=== PATIENT | female | born 1945 | race Caucasian/White ===

== ENCOUNTER 2025-07-01 18:49 | Inpatient (IN) | payer MEDICARE, SELFPAY ==
[2025-07-01] VITALS (7 sets, daily range): BP systolic 82–144; BP diastolic 53–81; BMI 26.6
--- NOTE | 2025-07-01 13:38 | ED.GENMED ---
History of Present Illness
General
Chief Complaint: Breathing Problem
Source: patient, family and ambulance crew
Exam Limitations: none
Time Seen by Provider: 07/01/25 13:23
Nursing documentation reviewed up to this point in time: agreed with
History of Present Illness
History of Present Illness:
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 Upon arrival, patient's oxygen level is
normal, and patient has no complaints. Patient denies any shortness of breath when her oxygen level was deemed to be low. Per family, denies recent illness. Denies previous history of similar symptoms. Patient does not typically use oxygen.
Patient denies chest pain. Denies fever or chills. Denies vomiting or diarrhea. Denies recent change in medications or diet.
Review of Systems
Review of Systems
Allergies reviewed?: Yes
All Other Systems: ROS reviewed and negative except as documented in HPI and ROS
Constitutional: Reports no symptoms; Denies fever
Respiratory: Reports cough; Denies trouble breathing
Cardiac: Reports no symptoms
ABD/GI: Reports no symptoms; Denies vomiting or diarrhea
Musculoskeletal: Reports no symptoms
Skin: Reports no symptoms
Neurological: Reports no symptoms
Phy Exam
Physical Exam
Physical Exam:
Physical Exam
General: no apparent distress, not acutely ill. afebrile
Head: nc/at. eomi
Neck: supple. no meningeal signs
Heart: s1/s2 regular rate and rhythm
Lungs: no acute respiratory distress. clear bilaterally
Abdomen: normal bowel sounds. not tender.
Neuro: alert and oriented x 3. LUE/LLE weakness, chronic
Skin: no rash
Psychiatric: well kept. interactive and cooperative
Extremities: no edema. no calf tenderness.
Scores
Heart Failure Risk
Heart Failure Risk Score: Not Applicable
Course
Orders/Labs/Results
Orders:
Orders
07/01/25 13:35
CR Chest Single View Urgent
Reason For Exam: sob/hypoxia
07/01/25 Dinner
Cholesterol Lowering
At Your Request: Limited Participation
Cholesterol Lowering: Sodium, 2 Gram
07/01/25 15:12
Basic Metabolic Panel Urgent
COVID-19 Antigen Urgent
Source: Nasal Swab
Complete Blood Count/No Diff Urgent
D-Dimer Urgent
Troponin I Urgent
07/01/25 15:49
CT Chest PE Study Urgent
Comment:
Reason For Exam: sob/hypoxia
07/01/25 18:09
Heparin 6,100 units IV NOW STA
07/01/25 18:[address] Non Medication Order As Directed
Physician Order: PTT 6 hours after initial start of Heparin infusion
Above order entered?: Yes
07/01/25 18:15
Heparin 22035 Units/250 ml 25,000 units in 250 ml IV PER PROTOCOL
Weight to be used for heparin protocol in kilograms (kg):: 76.3
Protocol:: DVT/PE
PTT Goal Range to be used:: PTT 73 to 111 seconds
Order type:: Initial
INITIAL Infusion Dose (UNITS/KG/hr) & then follow protocol:: 18 units/kg/hr
Infusion Dose in UNITS/hr & then follow protocol (UNITS/hr):: 1,400
INFUSION RATE in mL/hr & then follow protocol (mL/hr):: 14
For DVT/PE algorithm, re-bolus for low PTT?: Yes
PTT less than or equal to 64 seconds:: Re-bolus 80 units/kg (max 10,000units). Increase by 300 units/hr
(+ 3mL/hr)
PTT 64.1 to 72.9 seconds:: Re-bolus 40 units/kg (max 5,000 units). Increase by 200 units/hr
(+ 2mL/hr)
PTT 73 to 111 seconds:: Target Range. No change in rate.
PTT 111.1 to 130.9 seconds:: Decrease rate by 200 units/hr (- 2 mL/hr)
PTT 131 to 199.9 seconds:: HOLD for 1 hr. Then decrease by 200 units/hr (- 2mL/hr)
PTT greater than or equal to 200 seconds:: HOLD for 2 hrs & Notify Provider. Then decrease by 300 units/hr
(- 3mL/hr)
Lab follow-up:: Each change, PTT q6h until 2 consecutive are therapeutic. Then
PTT daily.
07/01/25 18:16
Heparin 6,100 units IV PRN PRN
07/01/25 18:17
Heparin 3,100 units IV PRN PRN
07/01/25 18:29
Admit/Transfer Patient As Directed
Co-Sign Provider:
Level of Care: Inpatient admission
Assign to:: IMU- Intermediate Care
Physician / Group: ever
Diagnosis: acute PE, hypotension
Reason for Hospitalization: acute PE, hypotension
Expected length of stay greater than two midnights?: Yes
ELOS- Estimated Length of Stay in days: 3
I certify the patient meets the requirements for IP care: Yes
07/01/25 18:31
Code Status As Directed
Resuscitation Status: Full Code
07/01/25 18:36
PTT Urgent
Comment: Obtain baseline before beginning heparin infusion if not already collected
07/01/25 20:11
Acetaminophen [Tylenol] 650 mg PO Q4HPRN PRN
07/01/25 20:11
PULMONARY CONSULT Routine
Consulting Provider: Anne Marie Cr
Was physician already notified: Yes
Reason for consult: PERT alert
Activity As Directed
Activity Level: With Assistance
Bladder Scan As Directed
Follow Bladder Retention/Intermittent Cath Algorithm?: Yes
Frequency: Per Retention Algorithm
Comment: as per intermittent urinary catheter algorithm
Bladder Scan As Directed
Follow Bladder Retention/Intermittent Cath Algorithm?: Yes
PRN if no void in __ hours: 6
Frequency: Per Retention Algorithm
If Bladder Scan Result >: 400
then:: Straight cath
Intake/ Output As Directed
Frequency: Per unit guidelines
Straight Cath As Directed
Frequency: Per Retention Algorithm
Additional Instructions: as per intermittent urinary catheter algorithm
Straight Cath As Directed
Frequency: Per Retention Algorithm
Additional Instructions: straight cath as needed per acute urinary retention algorithm for 24 hrs
Additional Instructions: for bladder scan greater than 400 mL
Vital Signs As Directed
Frequency: Per unit guidelines
07/01/25 22:00
Gabapentin [Neurontin] 100 mg PO HS
07/02/25 05:24
Complete Blood Count/No Diff IN AM
Comprehensive Metabolic Panel IN AM
Troponin I IN AM
07/02/25 08:00
Losartan [Cozaar] 25 mg PO DAILY
07/02/25 18:00
Rosuvastatin Calcium [Crestor] 40 mg PO QPM
Abnormal Lab Results
07/01/25 07/01/25
15:12 18:36
RBC 4.16 L 10^6/uL
(4.20-5.40)
Hgb 11.3 L g/dL
(12.0-16.0)
Hct 35.6 L %
(37.0-47.0)
MCHC 31.7 L g/dL
(33.0-37.0)
APTT 35.1 H Sec
(23.4-35.0)
D-Dimer 1.49 H ug/mlFEU
(0.00-0.50)
Carbon Dioxide 33 H mmol/L
(22-30)
Glucose 106 H mg/dl
(70-99)
Troponin I 0.106 H* ng/ml
07/01/25 15:12
07/01/25 15:12
Vital Signs
Initial and Last Documented VS:
Initial Vital Signs
Temp Pulse Resp BP Pulse Ox
98.0 F 83 16 92/54 96
07/01/25 12:58 07/01/25 12:58 07/01/25 12:58 07/01/25 12:58 07/01/25 12:58
Last Documented Vital Signs
Temp Pulse Resp BP Pulse Ox
98.1 F 72 16 99/56 100
07/02/25 03:00 07/02/25 04:00 07/02/25 04:00 07/02/25 04:00 07/02/25 04:00
MDM/Problems Addressed
MDM/Problems Addressed:
Discussed with nursing supervisor power reactor at rehab facility. Along with noted hypoxia at correction, patient noted to be in respiratory distress with dusky appearance/cyanosis.
Initial troponin noted without chest pain. Will obtain CT PE study to evaluate for potential pulm embolism, as potential source of patient's presenting symptoms.
CT PE study reviewed and discussed with on-call neurosurgery, . As hemorrhagic CVA occurred in December, patient can be fully anticoagulated. As such, patient will be started on heparin protocol.
PERT alert activated.
Critical care statement: A total of 40 minutes of critical care time was provided for this patient. This includes management of unstable vital signs, evaluation of the patient at bedside, reviewing the patient's pertinent medical records, discussion
with consultants, review of old EKGs and review of pertinent medical records. This time with separate from time utilized to perform the aforementioned documented procedures
*Pulse Oximetry
SaO2: 96
Oxygen Mode of Delivery: Room air
Patient hypoxic: no
*Critical Care Note
Total Time (30-74mins, 75-104mins- exclusive of procedures): 40 min
ED Attending Note
-
Portions of this chart may have been created with voice recognition software.� Occasional wrong word or��sound alike� substitutions may have occurred due to the inherent limitations of voice recognition software.
Discharge Plan
Departure
Patient Disposition: Admit
Date of Disposition: 07/01/25
Time of Disposition: 18:14
Admit to: IMU
Presentation/result/management discussed w/ accepting MD/DO: Hospitalist
Discharge Problem:
Pulmonary embolism
Interventions
Interventions:
*Risk Screen - Suicide Last Done: 07/01/25 14:00
*General Assessment Last Done: 07/01/25 14:00
*Neglect/Abuse Screening Last Done: 07/01/25 14:00
*ED- Fall Risk Assessment Last Done: 07/01/25 14:00
*Nursing Disposition Last Done: 07/01/25 19:52
ED- Cardiac Assessment Last Done: 07/01/25 14:00
ED- Pulmonary Assessment Last Done: 07/01/25 14:00
Discharge Date and Time
Discharge Date/Time: 07/01/25 19:52
[2025-07-01 15:33] LABS: Hematocrit 35.6 % (37.0-47.0); Hemoglobin 11.3 g/dL (12.0-16.0); Mean Corp Hgb Conc. 31.7 g/dL (33.0-37.0); Mean Corpuscular Volume 85.6 fL (81.0-99.0); Platelet Count 201 10^3/uL (130-400); Red Cell Dist. Width 12.5 % (11.5-14.5)
[2025-07-01 15:39] LABS: D-Dimer 1.49 ug/mlFEU (0.00-0.50)
[2025-07-01 15:40] LABS: COVID-19 Antigen Negative (Negative)
[2025-07-01 15:55] LABS: Blood Urea Nitrogen 17 mg/dl (7-17); Calcium 9.4 mg/dl (8.4-10.2); Carbon Dioxide 33 mmol/L (22-30); Chloride 105 mmol/L (98-107); Estimated Creatinine Clearance 53 ml/min; Glucose 106 mg/dl (70-99); Potassium 4.8 mmol/L (3.5-5.1); Sodium 138 mmol/L (135-145); eGFR > 60.00
[2025-07-01 16:03] LABS: Troponin I 0.106 ng/ml
--- NOTE | 2025-07-01 17:12 | HPS.HSE ---
Addendum entered and electronically signed by Yong Arnold MD 07/01/25 18:43:
Hypotensive on arrival
Essential HTN
- on FENCE ERECTOR Losartan - hoild if SBP < 110
Confused
Suspect Vascular dementia
s/p Hemorrhagic CVA with residual left-sided deficit and memory impairment
case discussed with Daughter on the phone in length
Original Note:
Family Physician
-
Family Physician: NOT KNOW UNKNOWN - PT DOES
Chief Complaint
-
Dasat to 70 5 on RA to NH
History of Present Illness
HPI�
79F NH Res HX recent hemorrhagic CVA with residual Lt deficit and memory impairment seen at ER:
- persistently low oxygen level, noted by staff this morning - POx 70s on RA but no aparent distress .
- does not typically use O2
- Upon arrival, patient's oxygen level is normal, and patient has no complaints.
- denies any SoB when her oxygen level was deemed to be low.
- Per family, denies recent illness.
- denies previous history of similar symptoms.
- denies chest pain.
- denies fever or chills.
- denies vomiting or diarrhea.
- denies recent change in medications or diet.
Medical History
Past Medical History
Past Medical History: Reports CVA ( Dec 2024 - hemorrhagic CVA), HTN, Hypercholesterolemia, Psychiatric (Anxiety and depression - stable ) and Other (neuropathy )
Past Surgical History: Reports Other (not available )
Social History
Unable to obtain full social history at this time due to: Dementia (vascular MCI )
Family History
Family History: Not pertinent
Allergies / Home Medications
Allergies reflects when Allergies were last updated in [facility].
Home Medications with original date entered in [facility]
Allergy/Medication List:
Allergies
Allergy/AdvReac Type Severity Reaction Status Date / Time
bupropion Allergy Unknown Unknown Verified 07/01/25 13:09
If medication reconciliation has not been performed, why?: Medication List N/A
Review of Systems
-
Constitutional: Reports No Symptoms
EENT: Reports No Symptoms
Respiratory: Reports No Symptoms
Cardiac: Reports No Symptoms
Abdomen/GI: Reports No Symptoms
: Reports No Symptoms
Musculoskeletal: Reports No Symptoms
Skin: Reports No Symptoms
Neurological: Reports No Symptoms
Endocrine: Reports No Symptoms
Hematologic/Lymphatic: Reports No Symptoms
Psych: Reports No Symptoms
Physical Exam
Vital Signs
Vital Signs
Temp Pulse Resp BP Pulse Ox
98.0 F 79 13 82/53 96
07/01/25 12:58 07/01/25 13:45 07/01/25 13:45 07/01/25 13:09 07/01/25 13:41
Physical Exam
General: Well Developed, Well Nourished and No Apparent Distress
HEENT: NormoCephalic, Moist mucous membranes and Atraumatic
Respiratory: Clear
Cardiac: S1/S2 and Regular Rhythm; No Murmur or Rub
GI: Soft, Non Tender, Non Distended and Normal Bowel Sounds; No Organomegaly
Rectal: Deferred by Provider
Musculoskeletal: No Clubbing, No Cyanosis and No Edema
Skin: No Rash
Neuro: Nonfocal/grossly intact
Laboratory Results
-
07/01/25 15:12
07/01/25 15:12
Laboratory Results
Total Bilirubin Cancelled 07/01/25 15:12
AST Cancelled 07/01/25 15:12
ALT Cancelled 07/01/25 15:12
Alkaline Phosphatase Cancelled 07/01/25 15:12
Troponin I 0.106 ng/ml H* 07/01/25 15:12
Data Reviewed
-
Diagnostic Radiology: Report Reviewed by me
CT Scan: Report Reviewed by me
Lab Data: Labs Reviewed by me
Impression/Plan
-
Vital Signs
Temp Pulse Resp BP Pulse Ox
98.0 F 79 13 82/53 96
07/01/25 12:58 07/01/25 13:45 07/01/25 13:45 07/01/25 13:09 07/01/25 13:41
07/01/25
12:58 07/01/25
13:41
Temp 98.0 F
Pulse 83
Resp Rate 16
Blood pressure 92/54
SaO2 96 96
Oxygen Mode of Delivery Room air Room air
Relevant Data�
07/01/25
15:12
WBC 7.0
Hgb 11.3 L
Plt Count 201
D-Dimer 1.49 H
Creatinine 0.9
eGFR > 60.00
Troponin I 0.106 H*
Elevated DD 1.49
EKG:
CXR: no acute abn
CTC PE study pending
NO PRIOR hospitalist admission:
ASSESSMENT & PLAN
Pending Rx reconciliation
Acute PE with desaturation as low as 70 % on RA at NH
Of note: Dec 2024 - hemorrhagic CVA
- No CT evidence of RHS
- Current O2 Sat 96% on
- PERT alert
- ER Discussed with motor inspection mechanic Neurosurgeon () - pt safe to be fully anticoagulated
- Heparin protocol.
HX Hemorrhagic CVA with residual left-sided deficit and memory impairment
Hypotensive
Essential HTN
- Hold FENCE ERECTOR Losartan
HLD
- on Rosuvastatin
Neuropathy
- stable
- on FENCE ERECTOR Gabapentin
Anxiety and depression
- stable
- on FENCE ERECTOR Alprazolam and Ecitalopram
DVT Px: Heparin gtt
Full code
IMU
[2025-07-01] MEDS: HEPARIN 6100 UNITS IV (19:04)
[2025-07-01] MEDS: HEPARIN 25000 UNITS/250 ML IV ×2 (19:05→19:08)
[2025-07-01 19:22] LABS: APTT 35.1 Sec (23.4-35.0)
[2025-07-01] MEDS: NEURONTIN 100 MG PO (23:16)
[2025-07-01] MEDS: TYLENOL 650 MG PO (23:16)
[2025-07-02] VITALS (12 sets, daily range): BP systolic 82–143; BP diastolic 47–125; BMI 27.0
[2025-07-02 01:59] LABS: APTT > 200.00 Sec (23.4-35.0)
--- NOTE | 2025-07-02 02:02 | PTCARENOTE ---
Received patient from the ED. Pt transferred to bed with maximum assistance. Pt is AAOx3, forgetful at times. Pt initially anxious and confused. Pt reassured and oriented to the new unit. Hx of CVA with notable L sided deficits. L arm, wrist, and
hand contracted. Pt c/o mild pain in her arms. PRN Tylenol administered see DEC. Received pt on heparin gtt. Pt on room air satting 92% on room air. Pt asymptomatic. NSR on the monitor. Pt grossly incontinent of urine, purewick placed. Pt educated
on the use of the call payton. Call payton within reach.
[2025-07-02 03:16] LABS: Troponin I 0.102 ng/ml
[2025-07-02 05:41] LABS: Hematocrit 35.1 % (37.0-47.0); Hemoglobin 11.3 g/dL (12.0-16.0); Mean Corp Hgb Conc. 32.2 g/dL (33.0-37.0); Mean Corpuscular Volume 84.6 fL (81.0-99.0); Platelet Count 174 10^3/uL (130-400); Red Cell Dist. Width 12.5 % (11.5-14.5)
[2025-07-02] MEDS: TYLENOL 650 MG PO ×2 (06:02→16:33)
[2025-07-02 06:06] LABS: Troponin I 0.083 ng/ml
[2025-07-02 06:30] LABS: ALT (SGPT) 82 U/L (0-35); AST (SGOT) 73 U/L (14-36); Albumin 3.0 g/dl (3.5-5.0); Alkaline Phosphatase 106 U/L (38-126); Blood Urea Nitrogen 16 mg/dl (7-17); Calcium 9.1 mg/dl (8.4-10.2); Carbon Dioxide 29 mmol/L (22-30); Chloride 105 mmol/L (98-107); Estimated Creatinine Clearance 52 ml/min; Glucose 95 mg/dl (70-99); Potassium 4.3 mmol/L (3.5-5.1); Sodium 136 mmol/L (135-145); Total Protein 5.7 g/dl (6.3-8.2); eGFR > 60.00
[2025-07-02] MEDS: COZAAR 25 MG PO (07:55)
--- NOTE | 2025-07-02 08:49 | W.PN.HOSP.TC ---
Today's Communication/Plan
-
Heparin drip
Assessment / Plan
Assessment / Plan
Physical exam:
General: Well Developed, Well Nourished and No Apparent Distress
HEENT: Normocephalic, Atraumatic and Moist Mucous Membranes
Respiratory: Clear to Auscultation; Negative Wheezes, Rales or Rhonchi
Cardiac: Regular Rhythm and S1/S2
GI: Soft, Nontender and Nondistended
Musculoskeletal: No Clubbing, No Cyanosis and No Edema
Neuro: Awake, Alert and Disoriented, no neurological deficit
Psych: Calm
A/P:
Acute hypoxic respiratory failure:
Due to PE
On anticoagulation
Updated daughter over the phone today, Eva
Acute PE:
Continue heparin drip
Pulmonary consult appreciated
Elevated troponin:
Elevated troponin due to non-ischemic myocardial injury due to PE
History of hemorrhagic CVA with left sided residual deficits:
Neurosurgery contacted in the ER and cleared for full anticoagulation
Anemia:
Con to monitor Hb
Vascular dementia:
Continue monitor behavioral and mental status
Hypertension:
Hold antihypertensives but monitor carefully to avoid hypotension
Hyperlipidemia:
Continue home statin
DVT prophylaxis:
Heparin drip
CODE STATUS:
DNR
Total time spent on today's encounter was 54 minutes which included time spent in counseling the patient/family regarding diagnosis and treatment plan as listed above, goals of care, and symptom management. Case was discussed with nursing staff,
specialists, and care coordinators/case management. All labs and imaging personally reviewed by me. Remainder the time spent in detailed review of previous records, lab data, imaging, and other medical provider documentation.
Anticipated Discharge: 24 - 48 hours
Subjective/Interval History
-
Date of Service: July 02, 2025
Patient feels less short of breath. She is mild disoriented but she knows she is in [facility] today. On supplemental oxygen
Objective Data
-
Labs:
Laboratory Results
07/02/25 07/02/25 07/02/25
01:01 05:24 10:00
WBC 5.5
Hgb 11.3 L
Hct 35.1 L
Plt Count 174
APTT > 200.00 H* Pending
Sodium 136
Potassium 4.3
Chloride 105
Carbon Dioxide 29
BUN 16
Creatinine 0.8
Glucose 95
Calcium 9.1
Total Bilirubin 0.5
AST 73 H
ALT 82 H
Alkaline Phosphatase 106
Vital Signs:
Vital Signs
Temp Pulse Resp BP Pulse Ox
98.1 F 77 15 115/62 100
07/02/25 03:00 07/02/25 07:55 07/02/25 06:00 07/02/25 07:55 07/02/25 06:00
I&O
07/01/25 07/02/25 07/03/25
06:59 06:59 06:59
Output Total 250 / 250
Balance -250 / -250
--- NOTE | 2025-07-02 09:52 | CON.PUL ---
Consultation
Consultation Request
Date/Time Consultation Requested: 07/02/25
Date/Time Consultation Performed: 07/02/25
Performing Provider: Tayo
Reason for Consultation: PE
Medical History
-
History of Present Illness:
Patient is a 79-year-old female with previous history of dementia, CVA presenting to ER with persistently low oxygen levels noted by staff at facility. She does not provide any symptomatology for shortness of breath, chest tightness or wheezing.
In ER, she was reportedly with pulse ox in the 70s, CTA obtained indicating pulmonary embolus extending into the right pulmonary artery into the upper and middle segments without evidence of right heart strain. She is placed on an IV heparin drip.
Past Medical History
Past Medical History: Other (see list below)
Social History
Tobacco: Non-smoker
Alcohol: None
Drug: None
Allergies / Home Medications
Allergies
Allergy/AdvReac Type Severity Reaction Status Date / Time
bupropion Allergy Unknown Unknown Verified 07/01/25 13:09
Home Medications
�Medication �Instructions �Recorded �Confirmed �Last Taken �Type
acetaminophen 325 mg tablet 650 mg PO Q6H PRN mild 07/01/25 07/01/25 Unknown History
pain/temperature >100.4
albuterol sulfate 2.5 mg/3 mL 2.5 mg inhalation Q6H PRN asthma 07/01/25 07/01/25 Unknown History
(0.083 %) solution for nebulization
alprazolam 1 mg tablet 1 mg PO HS 07/01/25 07/01/25 Unknown History
baclofen 5 mg tablet 5 mg PO HS 07/01/25 07/01/25 Unknown History
bisacodyl 10 mg rectal suppository 10 mg IA DAILY PRN constipation, 07/01/25 07/01/25 Unknown History
if no results from [facility]
docusate sodium 100 mg capsule 100 mg PO HS 07/01/25 07/01/25 Unknown History
(Colace)
enoxaparin 40 mg/0.4 mL 40 mg SC DAILY 07/01/25 07/01/25 Unknown History
subcutaneous syringe
escitalopram oxalate 10 mg tablet 10 mg PO DAILY 07/01/25 07/01/25 Unknown History
famotidine 20 mg tablet 20 mg PO HS 07/01/25 07/01/25 Unknown History
gabapentin 100 mg capsule 100 mg PO DAILY 07/01/25 07/01/25 Unknown History
ipratropium 0.5 mg-albuterol 3 mg 3 ml inhalation Q6H PRN sob or 07/01/25 07/01/25 Unknown History
(2.5 mg base)/3 mL nebulization wheezing
soln
levocetirizine 5 mg tablet 5 mg PO Q24H PRN Pruritis 07/01/25 07/01/25 Unknown History
lidocaine 5 % topical patch 1 patch topical DAILY 07/01/25 07/01/25 Unknown History
losartan 100 mg tablet 100 mg PO DAILY 07/01/25 07/01/25 Unknown History
magnesium 250 mg tablet 250 mg PO DAILY 07/01/25 07/01/25 Unknown History
multivitamin with minerals 1 tab PO DAILY 07/01/25 07/01/25 Unknown History
rosuvastatin 5 mg tablet 5 mg PO DAILY 07/01/25 07/01/25 Unknown History
tramadol 50 mg tablet 50 mg PO Q8H PRN back pain 07/01/25 07/01/25 Unknown History
triamcinolone acetonide 0.1 % 1 applic topical BID PRN 07/01/25 07/01/25 Unknown History
topical cream itching/rash
Review of Systems
-
History Source: Patient
All other systems: Negative unless noted
Vitals / Labs / Diagnostic Testing
Vital Signs
Temp Pulse Resp BP Pulse Ox
98.1 F 77 15 115/62 100
07/02/25 03:00 07/02/25 07:55 07/02/25 06:00 07/02/25 07:55 07/02/25 06:00
Lab Data
07/02/25 05:24
07/02/25 05:24
Laboratory Results
07/01/25 07/02/25
18:36 01:01
APTT 35.1 H > 200.00 H*
Diagnostic Testing:
Physical Exam
-
HEENT: Normocephalic, Anicteric and Moist Mucous Membranes
Cardiovascular: S1/S2 and Regular Rhythm
Respiratory: Clear and Non-Labored Respirations
GI: Soft, Non Distended and Non Tender
Neurology: Awake, Alert and Other (L sided weakness)
Skin: Warm and Dry
General: Comfortable and Other (NAD)
Assessment
-
Patient is a 79-year-old female with previous history of dementia, CVA presenting to ER with persistently low oxygen levels noted by staff at facility. She does not provide any symptomatology for shortness of breath, chest tightness or wheezing.
In ER, she was reportedly with pulse ox in the 70s, CTA obtained indicating pulmonary embolus extending into the right pulmonary artery into the upper and middle segments without evidence of right heart strain. She is placed on an IV heparin drip.
We are consulted for evaluation.
Acute hypoxic respiratory failure
Acute right-sided PE
Anemia
Elevated troponin, likely demand
Emphysema on CT
Conditions present prior to admission
Vascular dementia
History of CVA with residual left-sided deficit 03/2025
Hypertension
Hypercholesterolemia
Anxiety/depression
Neuropathy
Plan
Hypoxemia noted on arrival, O2 sara reportedly in 70s
Currently saturating 92% on RA
Home O2 evaluation can be obtained
Prior history of lung disease is NOT known
Is not on O2 at baseline at [place]
CXR/CT obtained indicating acute PE, likely sedentary
She is now on heparin IV
Emphysema is noted on her CT as well
No other imaging for review/comparisons
HTN history, no prior ECHO for review
Elevated trops, can obtain new study
Will likely need to transition to OAC
Recent CVA noted, hemorrhagic
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
Does not ambulate due to fall risk, uses [facility] for transport
Risk/benefit discussions needing with family/staff at facility
We will follow
Diagnostic Data
Chest X-Ray: 07/01/25- No acute cardiopulmonary abnormality.
CT Scan: CHEST 07/01/25- 1. There is a pulmonary embolus extending from the distal right pulmonary artery into the right upper and middle lobar/segmental pulmonary arteries. There is no evidence of associated right heart strain.
2. There is a small focus of nodular and groundglass opacities in the apical right upper lobe which may represent pneumonia. Recommend follow-up CT chest to ensure resolution.
3. Mild centrilobular emphysematous changes.
4. Moderate anterior compression deformity of the T6 vertebral body with associated increased thoracic kyphosis. This is likely a chronic compression fracture.
Echo:
PFT's:
Reports and relevant images were personally reviewed.
Total time spent on this consultation __55__ minutes which includes review of history, physical exam, medications, laboratory data, personal review of imaging, extensive review of outpatient records, discussion with care team and respiratory therapy.
[2025-07-02 12:36] LABS: APTT 153.9 Sec (23.4-35.0)
--- NOTE | 2025-07-02 12:49 | CM ---
Spoke with patients dgt Eva [phone] .Patient is currently [facility] since May after a CVA.She needs assistance in all ADLs.She is a [employer] lyft and wheelchair. She can not self propel .Eva wants her to return to [facility] and
she said she needs a care conference prior to her returning. LM with Soumya at [facility] for pharmacy information.
No VN hx / [facility] history
Pharmacy [facility] script
PCP DR Martinez
PLAN return to [facility]
[2025-07-02] MEDS: CRESTOR 40 MG PO (16:33)
[2025-07-02] MEDS: NEURONTIN 100 MG PO (20:04)
[2025-07-02 20:35] LABS: APTT 105.6 Sec (23.4-35.0)
[2025-07-02] MEDS: HEPARIN 25000 UNITS/250 ML IV (22:51)
[2025-07-03] VITALS (25 sets, daily range): BP systolic 103–142; BP diastolic 59–107
[2025-07-03 03:42] LABS: APTT 121.0 Sec (23.4-35.0)
[2025-07-03 03:54] LABS: Blood Urea Nitrogen 14 mg/dl (7-17); Calcium 8.6 mg/dl (8.4-10.2); Carbon Dioxide 27 mmol/L (22-30); Chloride 103 mmol/L (98-107); Estimated Creatinine Clearance 52 ml/min; Glucose 95 mg/dl (70-99); Potassium 3.9 mmol/L (3.5-5.1); Sodium 133 mmol/L (135-145); eGFR > 60.00
[2025-07-03 04:03] LABS: Hematocrit 32.3 % (37.0-47.0); Hemoglobin 10.6 g/dL (12.0-16.0); Mean Corp Hgb Conc. 32.8 g/dL (33.0-37.0); Mean Corpuscular Volume 82.8 fL (81.0-99.0); Platelet Count 152 10^3/uL (130-400); Red Cell Dist. Width 12.6 % (11.5-14.5)
--- NOTE | 2025-07-03 05:47 | PTCARENOTE ---
No acute events overnight. Patient desatted to 86 percent while asleep- 2 liters NC placed. No complaints of SOB. Heparin gtt infusing at 700 units/hr. Next PTT due at 1000. Orientation status waxes and wanes with patient becoming progressively more
confused overnight without agitation. Will continue to monitor.
--- NOTE | 2025-07-03 07:50 | W.PN.HOSP.TC ---
Today's Communication/Plan
-
cont hep gtt
wean O2 supplementation as tolerated
Briviact as per Neuro
Transferred to ICU for closer monitoring
Neurochecks
minimize use of QT prolonging agents as possible.
Assessment / Plan
Assessment / Plan
Physical exam:
General: No acute distress, appeared comfortable prior to sz events as noted above
HEENT: Normocephalic, Atraumatic and Moist Mucous Membranes
Respiratory: Clear to Auscultation; Negative Wheezes, Rales or Rhonchi
Cardiac: Regular Rhythm and S1/S2
GI: Soft, Nontender and Nondistended
Musculoskeletal: No Clubbing, No Cyanosis and No Edema
Neuro: AOx3 conversant coherent, left sided functional hemiplegia baseline per patient, post-ictal/confused following seizure events as noted above, gradually resolved as day progressed
Psych: Calm
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
Acute hypoxic respiratory failure d/t Acute PE
Continue heparin gtt
Pulmonary consult appreciated
Check Venous Duplex and ECHO
wean O2 supplementation as tolerated
New Onset Sz 07/03
rapid response called when patient suddenly became unresponsive with Left sided gaze fixation, reportedly lasting minutes, spontaneously resolved
Patient shortly after developed a second episode, stiffening, unresponsiveness, gaze deviation, aborted with once IV Valium 5 mg, noted post-ictal afterwards
CT head noted no acute abn's
Neuro eval appreciated pt started on Briviact
Transferred to ICU for closer monitoring
Neurochecks
Possible Benzo withdrawal contributing (patient reports being on Xanax 1 mg HS for years)
Home Xanax resumed at reduced dose for now 0.75 mg HS.
Elevated troponin:
Elevated troponin 2/2 non-ischemic myocardial injury due to PE
Troponin peak 0.106 since trended down
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
Neurosurgery contacted in the ER and cleared for full anticoagulation
CVA was treated at [facility], records requested
cont home Gabapentin and baclofen
cont statin
QT prolongation 509 since improved to 488
binding dyer
follow up repeat EKG in AM
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
Mild Anemia
monitor
Vascular dementia:
Continue monitor behavioral and mental status
Hx Hypertension
Hypotension systolic 80s noted early in hospital course
improved with hold home cozaar 100 mg daily
resumed cozaar at reduced dose 25 mg daily w/ holding parameters
monitor and titrate antihypertensive as necessary
Hyperlipidemia:
Continue home statin
DVT prophylaxis:
Heparin drip
CODE STATUS:
DNR
Discussed with patient, patient's daughter Eva, RN, Event Promotions Coordinator, and Neurologist
I spent a total of 60 minutes with the patient or on the floor. More than 50% of this time involved counseling and coordination of care.
Anticipated Discharge: > 48 hours
Subjective/Interval History
-
Date of Service: July 03, 2025
Seen and examined at bedside earlier in the morning overall reported feeling well. AOx3 conversant coherent. Stable respiratory status on 2L. Daughter Eva present during evaluation. Later in day patient rapid response d/t new onset sz,
fixed gaze to the left unresponsive. Initial episode spontaneously resolved, lasting minutes. 2nd episode later occurred, aborted with 5 mg IV Valium. patient noted post-ictal afterwards. Vital signs otherwise stable.
Objective Data
-
Labs:
Laboratory Results
07/02/25 07/03/25 07/03/25
20:11 03:09 10:00
WBC 5.3
Hgb 10.6 L
Hct 32.3 L
Plt Count 152
APTT 105.6 H 121.0 H Pending
Sodium 133 L
Potassium 3.9
Chloride 103
Carbon Dioxide 27
BUN 14
Creatinine 0.8
Glucose 95
Calcium 8.6
Vital Signs:
Vital Signs
Temp Pulse Resp BP Pulse Ox
99.0 F 69 16 123/59 96
07/03/25 07:00 07/03/25 06:00 07/03/25 06:00 07/03/25 06:00 07/03/25 06:00
I&O
07/02/25 07/03/25 07/04/25
06:59 06:59 06:59
Intake Total 240 / 240
Output Total 250 / 250 950 / 950
Balance -250 / -250 -710 / -710
--- NOTE | 2025-07-03 10:33 | W.PN.PUL3 ---
Addendum entered and electronically signed by Anne Marie Cr, DO 07/03/25 14:57:
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
She is s/p CVA repeat HCT showing no acute findings, neuro consult placed, for EEG testing
Transferred to ICU per team, we will follow
Original Note:
Today's Communication / Plan
-
Ok to transition to OAC
Fall risk noted, I reviewed risk/benefit with family, they are aware
Ok for d/c from our perspective once transitioned and tolerating
OP FU can be arranged if needed
Assessment
-
Patient is a 79-year-old female with previous history of dementia, CVA presenting to ER with persistently low oxygen levels noted by staff at facility. She does not provide any symptomatology for shortness of breath, chest tightness or wheezing.
In ER, she was reportedly with pulse ox in the 70s, CTA obtained indicating pulmonary embolus extending into the right pulmonary artery into the upper and middle segments without evidence of right heart strain. She is placed on an IV heparin drip.
We are consulted for evaluation.
Acute hypoxic respiratory failure
Acute right-sided PE
Anemia
Elevated troponin, likely demand
Emphysema on CT
Conditions present prior to admission
Vascular dementia
History of CVA with residual left-sided deficit 03/2025
Hypertension
Hypercholesterolemia
Anxiety/depression
Neuropathy
Plan
Hypoxemia noted on arrival, O2 sara reportedly in 70s
Currently saturating 92% on RA
Home O2 evaluation cannot be obtained--full assist/wheelchair
Fall risk, does not ambulate
Prior history of lung disease is NOT known
Is not on O2 at baseline at [place]
CXR/CT obtained indicating acute PE, likely sedentary
She is now on heparin IV
Emphysema is noted on her CT as well
No other imaging for review/comparisons
Transition to OAC per team
HTN history, no prior ECHO for review
Elevated trops, can obtain new study
Will likely need to transition to OAC
Recent CVA noted, hemorrhagic
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
Does not ambulate due to fall risk, uses mckayla lift for transport--I reviewed with family
Risk/benefit discussions needing with family/staff at facility
Updated family today at bedside
Discharge planning otherwise per team
Diagnostic Data
Chest X-Ray: 07/01/25- No acute cardiopulmonary abnormality.
CT Scan: CHEST 07/01/25- 1. There is a pulmonary embolus extending from the distal right pulmonary artery into the right upper and middle lobar/segmental pulmonary arteries. There is no evidence of associated right heart strain.
2. There is a small focus of nodular and groundglass opacities in the apical right upper lobe which may represent pneumonia. Recommend follow-up CT chest to ensure resolution.
3. Mild centrilobular emphysematous changes.
4. Moderate anterior compression deformity of the T6 vertebral body with associated increased thoracic kyphosis. This is likely a chronic compression fracture.
Echo:
PFT's:
Reports and relevant images were personally reviewed.
Total time spent on this consultation __50__ minutes which includes review of history, physical exam, medications, laboratory data, personal review of imaging, extensive review of outpatient records, discussion with care team and respiratory therapy.
Subjective Data
-
Date of Service:
Date of Service: July 03, 2025
Chief Complaint: Pulmonary Follow Up
Subjective:
No new events, remains stable
Daughter at bedside
Objective Data
Data Reviewed
Vital Signs / I&O / Oxygen:
Vital Signs
Temp Pulse Resp BP Pulse Ox
99.0 F 69 16 123/59 95
07/03/25 07:00 07/03/25 06:00 07/03/25 06:00 07/03/25 06:00 07/03/25 08:26
Intake and Output
07/02/25 07/03/25 07/04/25
06:59 06:59 06:59
Intake Total 240 / 240
Output Total 250 / 250 950 / 950
Balance -250 / -250 -710 / -710
SaO2 95
Nasal Cannula flow liters per 2
minute
Physical Exam
General: Comfortable and Other (NAD)
HEENT: Normocephalic, Anicteric and Moist Mucous Membranes
Cardiovascular: S1-S2 and Regular Rhythm
Respiratory: Clear and Non-Labored Respirations
GI: Soft, Non Distended and Non Tender
Neurology: Awake, Alert, Oriented and Other (L sided weakness, full assist)
Skin: Warm, Dry and Good Color
Labs/Micro/Reports
Lab Data
07/03/25 03:09
07/03/25 03:09
Laboratory Results
07/02/25 07/02/25 07/03/25
12:04 20:11 03:09
APTT 153.9 H* 105.6 H 121.0 H
[2025-07-03 11:24] LABS: APTT 72.8 Sec (23.4-35.0)
--- NOTE | 2025-07-03 12:20 | PTCARENOTE ---
Caring for pt throughout the day. Aox2. NSR on tele monitor. VSS, sating mid 90's on 2L NC. Purewick draining jose urine. Pt with poor appetite. Heparin gtt infusing as ordered, see intervention. Family at bedside, updated on plan of care. Pt
ringing appropriately, call payton within reach.
--- NOTE | 2025-07-03 13:38 | RR ---
A Rapid Response was called on this patient, please see Rapid Response form.
Pt pulled up in bed and repositioned for lunch. Pt then turned left, began shaking and became unresponsive. Rapid responsive called. Episode lasted approx 30 seconds to one minute before pt became responsive. Dr. Messina and RR team at bedside. Pt
then with another episode of seizure like activity. Orders placed by provider. Pt to STAT CT with RR team. Pt's daughter at bedside, emotional support provided.
[2025-07-03 13:42] LABS: Glucose - Point of Care 110 mg/dl (70-99)
--- NOTE | 2025-07-03 13:53 | CON.NEURO ---
Neuro Assessment/Plan
Assessment
Acute onset 2 episodes of generalized tonic-clonic movements suggested to be seizures in a patient with a relatively recent hemorrhagic stroke requiring craniotomy at an outside institution.
Additional risk factor includes potential withdrawal from the use of benzodiazepines although the patient was utilizing a low-dose
Plan
Load Brivaracetam as the patient reports some sense of mild depression following her stroke and therefore levetiracetam might worsen this depression
Check CT of head, completed
Check rapid EEG if patient develops a third episode despite loading antiseizure medication, otherwise, check greater than 1 hour EEG on routine workday
Provide thiamine for completeness
Would avoid benzodiazepine withdrawal at this time
Consider SSRI medication for patient's mild depression
Will follow
Consultation
Order
Date of Consultation: 07/03/25
Requesting Provider: Hospitalists
Reason for Consult: Change in mental status
Subjective/Objective
Subjective Data
Date of Service: July 03, 2025
Currently right handed.
Patient presented to [facility] ED from alf secondary to persistently low oxygen levels. Was found to have an acute PE for which anticoagulation was prescribed.
Patient had subsequently stabilized and was in the intermediate medical unit at which time she developed sudden onset change in mental status. At that time, the patient began, while observed by her nurse, looking left then nearly immediately
followed by generalized shaking, and being unresponsive lasting 30-60 seconds total. The patient was able to recall the date and part as well as location before 2 minutes after the end of the first event developing an identical second event.
Although the patient has a history of bladder incontinence there was no known incontinence at the time and no known bowel incontinence. The patient did not report any tongue biting at the time.
Objective Data
Vital Signs
Temp Pulse Resp BP Pulse Ox
37.0 C 76 16 126/80 100
07/03/25 11:00 07/03/25 13:27 07/03/25 13:27 07/03/25 13:27 07/03/25 13:27
Lab Results
07/03/25 03:09
07/03/25 03:09
APTT 72.8 Sec (23.4-35.0) H 07/03/25 10:38
Sodium 133 mmol/L (135-145) L 07/03/25 03:09
Potassium 3.9 mmol/L (3.5-5.1) 07/03/25 03:09
BUN 14 mg/dl (7-17) 07/03/25 03:09
Glucose 95 mg/dl (70-99) 07/03/25 03:09
Calcium 8.6 mg/dl (8.4-10.2) 07/03/25 03:09
Patient Allergies
bupropion Allergy (Unknown, Verified 07/01/25 13:09)
Unknown
Review of Systems
-
History Source: Patient and Family
All other systems: Reviewed and negative
EENT: Negative Swallowing Difficulty
Respiratory: Negative Trouble Breathing
Cardiac: Negative Chest Pain
Genitourinary: Incontinence
Musculoskeletal: Neck Pain; Negative Back Pain
Neuro: Negative Dizzy or Headache
Physical Exam
-
General: No Apparent Distress and Appears Stated Age
Eyes: OU Absent Papilledema, Round OU, [place] Conjunctivae and No Ptosis
HEENT: Anicteric and Moist Mucous Membranes
Neck: Full Range of Motion
Respiratory: No Dyspnea
Cardiac: No JVD
GI: Non-distended
Skin: Unremarkable
Extremities: No Clubbing, No Cyanosis and No Edema
Psych: Intact Judgement/Insight
Extended Neurological Exam
Mood & Affect: Mood Unremarkable and Affect Unremarkable
Attention Span & Concentration: Awake, Alert, Interactive and No Difficulty with 2 Step Request
Memory: Unremarkable
Tremor: Hand Tremor Absent and Head Tremor Absent
Speech: Quality Unremarkable and Quantity Unremarkable
Cranial Nerve II: Left Eye: Pupillary Reactivity Unremarkable, Pupillary Size Unremarkable and Visual Cheng Intact
Cranial Nerve II: Right Eye: Pupillary Reactivity Unremarkable, Pupillary Size Unremarkable and Visual Cheng Intact
Cranial Nerves III, IV, : Extraocular Movement: Extraocular Movement Full in all Directions
Cranial Nerve VII: Facial Symmetry: Normal Facial Symmetry
Cranial Nerve VIII: Hearing: Unremarkable Hearing to Normal Conversational Volume
Cranial Nerves IX, X: Palate Movement: Palate Elevation Symmetric
Cranial Nerve XI: Shoulder Shrug: Unremarkable
Cranial Nerve XII: Tongue Protusion: Midline
Muscle Strength, Overall: Absent (Movement in the left upper and lower extremities)
Muscle Bulk & Tone: Bulk Unremarkable and Tone Unremarkable
Pronator Drift: Other (No movement left upper or lower extremity, therefore no drift evaluation possible)
Deep Tendon Reflexes: Trace Throughout
Touch Sensation: Unremarkable
Coordination: Other (Normal coordination in the right upper extremity)
Babinski Sign: Absent Bilaterally
Gait & Station: Unable to Assess
Data Reviewed
-
CT Head: Report Reviewed and Image Reviewed
Labs: Report Reviewed
Reviewed with: Physician, Nurse and Patient
Old Records: Summarized
Medications
-
Active Medications
Generic Name Dose Route Start Last Admin
Trade Name Freq PRN Reason Stop Dose Admin
Acetaminophen 650 mg 07/01/25 20:11 07/02/25 16:33
Acetaminophen 325 Mg Tablet PO 07/29/25 20:10 650 mg
Q4HPRN PRN Administration
mild pain/temp > 100.4 F
Gabapentin 100 mg 07/01/25 22:00 07/02/25 20:04
Gabapentin 100 Mg Capsule PO 07/29/25 21:59 100 mg
HS OTTO Administration
Heparin Sodium 6,100 units 07/01/25 18:16
Heparin 80 Units/Kg Iv Rebolus IV 07/29/25 18:15
PRN PRN
PTT < OR = 64 seconds
Heparin Sodium 3,100 units 07/01/25 18:17
Heparin 40 Units/Kg Iv Rebolus IV 07/29/25 18:16
PRN PRN
PTT = 64.1 to 72.9 seconds
Heparin Sodium 25,000 units in 250 mls @ 0 mls/hr 07/01/25 18:15 07/02/25 22:51
Heparin 82356 Units/250 Ml IV 250 mls
PER PROTOCOL OTTO Administration
Protocol
Per Protocol
Losartan Potassium 25 mg 07/02/25 08:00 07/02/25 07:55
Losartan 25 Mg Tablet PO 07/30/25 07:59 25 mg
On Hold: 07/02/25 13:38 DAILY OTTO Administration
Rosuvastatin Calcium 40 mg 07/02/25 18:00 07/02/25 16:33
Rosuvastatin (Crestor) 20 Mg Tablet PO 07/30/25 17:59 40 mg
QPM OTTO Administration
Sodium Chloride 0 flush 07/01/25 21:00
Sodium Chloride 0.9% (Flush) Syringe IV 07/29/25 20:59
PER PROTOCOL OTTO
Home Medications
�Medication �Instructions �Recorded
acetaminophen 325 mg tablet 650 mg PO Q6H PRN mild 07/01/25
pain/temperature >100.4
albuterol sulfate 2.5 mg/3 mL 2.5 mg inhalation Q6H PRN asthma 07/01/25
(0.083 %) solution for nebulization
alprazolam 1 mg tablet 1 mg PO HS Mental Health/Anxiety 07/01/25
baclofen 5 mg tablet 5 mg PO HS Pain 07/01/25
bisacodyl 10 mg rectal suppository 10 mg TX DAILY PRN constipation, 07/01/25
if no results from [facility]
docusate sodium 100 mg capsule 100 mg PO HS Constipation 07/01/25
(Colace)
enoxaparin 40 mg/0.4 mL 40 mg SC DAILY Blood Clot 07/01/25
subcutaneous syringe Prevention/Tx
escitalopram oxalate 10 mg tablet 10 mg PO DAILY Mental 07/01/25
Health/Anxiety
famotidine 20 mg tablet 20 mg PO HS Gastrointestinal Issue 07/01/25
gabapentin 100 mg capsule 100 mg PO DAILY Pain 07/01/25
ipratropium 0.5 mg-albuterol 3 mg 3 ml inhalation Q6H PRN sob or 07/01/25
(2.5 mg base)/3 mL nebulization wheezing
soln
levocetirizine 5 mg tablet 5 mg PO Q24H PRN Pruritis 07/01/25
lidocaine 5 % topical patch 1 patch topical DAILY Pain 07/01/25
losartan 100 mg tablet 100 mg PO DAILY Blood Pressure 07/01/25
magnesium 250 mg tablet 250 mg PO DAILY Electrolyte 07/01/25
Repletion
multivitamin with minerals 1 tab PO DAILY Supplement 07/01/25
rosuvastatin 5 mg tablet 5 mg PO DAILY High Cholesterol 07/01/25
tramadol 50 mg tablet 50 mg PO Q8H PRN back pain 07/01/25
triamcinolone acetonide 0.1 % 1 applic topical BID PRN 07/01/25
topical cream itching/rash
Past History
Past History
ED Past Medical History: CVA (Hemorrhagic) and Other (Dementia)
[2025-07-03] MEDS: VALIUM INJECTION 5 MG IV (14:05)
--- NOTE | 2025-07-03 14:48 | PTCARENOTE ---
Arrived @ RR and pt. was unresponsive w gaze deviated to L; nystagmus present; pinpoint pupils. After approx >1 min pt. gaze purposeful; tracking and speaking; ox2-3, underlying dementia; denied pain. Pt. L side flaccid from previous CVA.
Daughter reported pt. had CP prior to beginning of episode; pt reported no CP after this episode. EKG obtained- SR; trop drawn and sent to lab. Dr. Messina to bedside; updated. Pt. spontaneously went back into similar neuro episode; questionable
seizure activity. Dr. Messina witnessed; orders for stat Head CT- obtained. Transferred to ICU. Neuro nursery helper'd and to bedside. Plan to hold off on cerebell device d/t pt.'s mentation return to baseline after episode(s); also no need to obtain NIH per
neuro; neuro checks initiated per protocol. Complete hygiene provided. Pt. acclimated to new room and call payton placed w in reach.
--- NOTE | 2025-07-03 14:49 | PTCARENOTE ---
Pt upgraded to ICU. Report to receiving RN. Belongings collected from room and sent with pt. Daughter very distraught, pastoral care notified and computational biologist commercial escrow assistant en route.
[2025-07-03] MEDS: BRIVIACT 200 MG IV (15:04)
[2025-07-03] MEDS: CRESTOR 40 MG PO (17:31)
--- NOTE | 2025-07-03 18:33 | PTCARENOTE ---
No repeat neuro events since tx to ICU. Neuro checks completed per orders- see flow sheet. Tolerating intake, no s/s of asp; poor marifer. Daughter @ bedside, updated. Call fito gupta in reach.
[2025-07-03 18:37] LABS: APTT 152.0 Sec (23.4-35.0)
--- NOTE | 2025-07-03 19:28 | PTCARENOTE ---
on assessment pt AAOx2-3 forgetful at times, denies pain and SOB at this time, SR on the monitor, 97% RA, no BM, purwick in place, incontinent, hep gtt per orders, bed alarm on and call payton in reach
[2025-07-03] MEDS: BRIVIACT 100 MG IV (20:28)
[2025-07-03] MEDS: XANAX 0.75 MG PO (20:30)
[2025-07-03] MEDS: NEURONTIN 100 MG PO (20:45)
[2025-07-03] MEDS: LIORESAL 5 MG PO (20:45)
[2025-07-04] VITALS (21 sets, daily range): BP systolic 94–150; BP diastolic 54–82; BMI 25.9
--- NOTE | 2025-07-04 | PTCARENOTE ---
pt repositioned, denies pain and SOB at this time, bed alarm on and call payton in reach
[2025-07-04 01:47] LABS: Hematocrit 33.4 % (37.0-47.0); Hemoglobin 11.0 g/dL (12.0-16.0); Mean Corp Hgb Conc. 32.9 g/dL (33.0-37.0); Mean Corpuscular Volume 83.3 fL (81.0-99.0); Platelet Count 161 10^3/uL (130-400); Red Cell Dist. Width 12.5 % (11.5-14.5)
[2025-07-04 01:59] LABS: APTT 87.4 Sec (23.4-35.0)
[2025-07-04 02:20] LABS: Blood Urea Nitrogen 14 mg/dl (7-17); Calcium 8.7 mg/dl (8.4-10.2); Carbon Dioxide 27 mmol/L (22-30); Chloride 105 mmol/L (98-107); Estimated Creatinine Clearance 70 ml/min; Glucose 95 mg/dl (70-99); Magnesium 1.6 mg/dl (1.6-2.3); Potassium 3.6 mmol/L (3.5-5.1); Sodium 137 mmol/L (135-145); eGFR > 60.00
--- NOTE | 2025-07-04 06:25 | PTCARENOTE ---
no changes from prior assessment, bed alarm on and call payton in reach
--- NOTE | 2025-07-04 07:33 | W.PN.INTV ---
Today's Communication / Plan
Recommendations
Convert heparin to Eliquis
Mental status back to baseline
EEG pending
Stable for transfer out of ICU-call pulmonary if respiratory issues arise
Assessment
-
Patient is a 79-year-old female with previous history of dementia, CVA presenting to ER with persistently low oxygen levels noted by staff at facility. She does not provide any symptomatology for shortness of breath, chest tightness or wheezing.
In ER, she was reportedly with pulse ox in the 70s, CTA obtained indicating pulmonary embolus extending into the right pulmonary artery into the upper and middle segments without evidence of right heart strain. She is placed on an IV heparin drip.
We are consulted for evaluation.
Acute hypoxic respiratory failure
Acute right-sided PE
Anemia
Elevated troponin, likely demand
Emphysema on CT
Conditions present prior to admission:
Vascular dementia
History of CVA-reportedly hemorrhagic with possible craniotomy with residual left-sided deficit 03/2025
Hypertension
Hypercholesterolemia
Anxiety/depression
Neuropathy
Plan
Respiratory status stable
Wean FiO2
Assess discharge supplemental oxygen needs
Aspiration precautions
Incentive spirometry
Nebulizers if needed-currently not bronchospastic
Emphysema is noted on her CT as well
Heparin drip-convert to oral anticoagulant
Lower extremity ultrasound 07/04/2025-no DVT from common femoral through upper calf veins on either side
If tolerated and no contraindications treat for minimum of 3 to 6 months with subsequent reevaluation-significant risks for long-term anticoagulation including fall risk
Mental status changes previously of unclear etiology
CT head negative
Back to baseline mental status
EEG pending-no obvious seizure activity
Neurology following-correspondence reviewed
DVT prophylaxis-on anticoagulation
Nutrition
Physical therapy
Patient stable from a pulmonary perspective for transfer out of ICU-call pulmonary if respiratory issues arise
Critical care statement: A total of 45 minutes of critical care time was provided for this patient today. This includes management of unstable vital signs, evaluation of the patient at bedside, reviewing the patient�s pertinent medical records
including radiographs, microbiology, laboratory evaluations, and��discussion with primary team, consultants, pharmacy, nutrition, physical therapy, case management, charge nurse, critical care nursing, and respiratory therapy.
Diagnostic Data
Chest X-Ray: 07/01/25- No acute cardiopulmonary abnormality.
CT Scan: CHEST 07/01/25- 1. There is a pulmonary embolus extending from the distal right pulmonary artery into the right upper and middle lobar/segmental pulmonary arteries. There is no evidence of associated right heart strain.
2. There is a small focus of nodular and groundglass opacities in the apical right upper lobe which may represent pneumonia. Recommend follow-up CT chest to ensure resolution.
3. Mild centrilobular emphysematous changes.
4. Moderate anterior compression deformity of the T6 vertebral body with associated increased thoracic kyphosis. This is likely a chronic compression fracture.
Reports and relevant images were personally reviewed.
Subjective Dataa
Subjective Data
Date of Service:
Date of Service: July 04, 2025
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
Subjective:
Alert, answers questions appropriate, no shortness of breath, no chest pain or abdominal pain, no pleurisy
Review of Systems
General: Other (Per HPI)
Objective Data
Data Reviewed
Vital Signs / I&O / Oxygen:
Vital Signs
Temp Pulse Resp BP Pulse Ox
98.6 F 61 19 124/67 99
07/04/25 06:24 07/04/25 06:00 07/04/25 06:00 07/04/25 06:00 07/04/25 06:23
Intake and Output
07/03/25 07/04/25 07/05/25
06:59 06:59 06:59
Intake Total 240 / 240 475 / 475
Output Total 950 / 950 850 / 850
Balance -710 / -710 -375 / -375
SaO2 99
Nasal Cannula flow liters per 2
minute
Physical Exam
General: Respiratory Distress (n) and Comfortable
HEENT: Normocephalic, Anicteric and Moist Mucous Membranes
Cardiovascular: Regular Rhythm
Respiratory: Wheeze (n), Crackles, Rhonchi (n), Non-Labored Respirations, Accessory Resp Muscle Use (n) and Stridor (n)
GI: Soft, Non Distended and Non Tender
Neurology: Awake, Alert and No Motor Deficits
Skin: Warm, Good Color, Cyanosis (n), Jaundice (n) and Rash
Labs/Micro/Reports
Lab Data
07/04/25 01:36
07/04/25 01:36
Laboratory Results
07/03/25 07/03/25 07/04/25
10:38 17:30 01:36
APTT 72.8 H 152.0 H* 87.4 H
[2025-07-04] MEDS: COZAAR 25 MG PO (08:34)
[2025-07-04] MEDS: ELIQUIS 5 MG PO ×2 (08:34→19:41)
[2025-07-04] MEDS: BRIVIACT 100 MG IV (08:35)
[2025-07-04] MEDS: LIDOCAINE 4% PATCH 1 PATCH TOPICAL (08:35)
[2025-07-04] MEDS: NEURONTIN 100 MG PO (08:36)
--- NOTE | 2025-07-04 08:36 | W.PN.HOSP.TC ---
Today's Communication/Plan
-
stable for downgrade to IMU
Hep gtt transitioned to Eliquis
Briviact switched from IV to Oral
magnesium supplementation
Assessment / Plan
Assessment / Plan
Physical exam:
General: No acute distress, appeared comfortable at this time
HEENT: Normocephalic, Atraumatic and Moist Mucous Membranes
Respiratory: Clear to Auscultation; Negative Wheezes, Rales or Rhonchi
Cardiac: Regular Rhythm and S1/S2
GI: Soft, Nontender and Nondistended
Musculoskeletal: No Clubbing, No Cyanosis and No Edema
Neuro: Lethargic but arousable, oriented x3, conversant coherent
Psych: Calm
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
Acute hypoxic respiratory failure d/t Acute PE
heparin gtt transitioned to [facility]
Pulmonary consult appreciated
Venous Duplex appreciated no DVT
ECHO appreciated EF 62%
weaned off oxygen supplementation
New Onset Sz 07/03
rapid response called when patient suddenly became unresponsive with Left sided gaze fixation, reportedly lasting minutes, spontaneously resolved
Patient shortly after developed a second episode, stiffening, unresponsiveness, gaze deviation, aborted with once IV Valium 5 mg, noted post-ictal afterwards
CT head noted no acute abn's
Neuro eval appreciated pt started on Briviact
Transferred to ICU for closer monitoring, since downgraded to IMU with clinical improvement stability
Routine EEG appreciated no sz activity
Briviact transitioned to PO
Possible Benzo withdrawal contributing (on Xanax 1 mg HS for years, not resumed on admission, missed two days, though withdrawal is more typically seen in patients taking the medication multiple times a day)
Also possible Late onset sz d/o following relatively recent severe Stroke
Home Xanax resumed at reduced dose for now 0.75 mg HS- tolerating
#Non ischemic myocardial injury vs Type II [place] demand ischemia
Troponin peak 0.106 since trended down
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
Neurosurgery contacted in the ER and cleared for full anticoagulation
CVA was treated at [facility], records requested
cont home Gabapentin and baclofen
cont statin
QT prolongation 509 since improved to 468
lunchroom monitor
follow up repeat EKG in AM
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
Mild Anemia
monitor
Vascular dementia
Depression
Continue monitor behavioral and mental status
Lexapro resumed with improvement in QT prolongation as noted above.
Hx Hypertension
Hypotension systolic 80s noted early in hospital course
improved with hold home cozaar 100 mg daily
resumed Cozaar at reduced dose 25 mg daily w/ holding parameters, tolerating well
monitor and titrate antihypertensive as necessary
Hyperlipidemia:
Continue home statin
Low Normal Mg
supplementation provided
DVT prophylaxis:
Eliquis
CODE STATUS:
DNR
Discussed with patient and patient's daughter Eva
I spent a total of 55 minutes with the patient or on the floor. More than 50% of this time involved counseling and coordination of care.
Anticipated Discharge: 24 - 48 hours
Subjective/Interval History
-
Date of Service: July 04, 2025
No acute distress resting comfortably in bed. Lethargic but arousable, oriented x3. Conversant coherent
Objective Data
-
Labs:
Laboratory Results
07/04/25 07/04/25
01:36 08:00
WBC 4.3 L
Hgb 11.0 L
Hct 33.4 L
Plt Count 161
APTT 87.4 H Pending
Sodium 137
Potassium 3.6
Chloride 105
Carbon Dioxide 27
BUN 14
Creatinine 0.6
Glucose 95
Calcium 8.7
Vital Signs:
Vital Signs
Temp Pulse Resp BP Pulse Ox
98.1 F 62 13 116/65 100
07/04/25 07:55 07/04/25 08:00 07/04/25 08:00 07/04/25 08:00 07/04/25 08:00
I&O
07/03/25 07/04/25 07/05/25
06:59 06:59 06:59
Intake Total 240 / 240 475 / 482
Output Total 950 / 950 850 / 850
Balance -710 / -710 -375 / -368
[2025-07-04] MEDS: MAGNESIUM SULFATE 50 IV (10:35)
--- NOTE | 2025-07-04 12:42 | EEG.RPT ---
Electroencephalogram Report
Recording
Date of EE07/04/25
Type of EEG: Routine
Length of EEG recordin minutes
Done with Video Recording: Yes
Patient Status: Inpatient
Recording Conditions: Awake, Drowsy and Asleep
Hyperventilation Performed: No
Photic Stimulation Performed: Yes
Report
GREATER THAN 1 HOUR EEG INTERPRETATION:
Mildly abnormal EEG for age due to interhemispheric asymmetry with slowing from the right cortex compared with the contralateral side
CLINICAL CORRELATION:
This study was suggestive of an interhemispheric asymmetry without breech artifact. The study was consistent with a history suggesting prior intracranial surgery on the right. No seizures were recorded.
Clinical correlation is advised.
METHODS:
A 21 channel digitized electroencephalogram (EEG) was performed in the Clinical Neurophysiology Laboratory. The 10/20 international system of electrode placement was used with ECG and lateral/vertical eye movements recorded. The [employer] quantitative
EEG system was utilized.
QUALITY OF STUDY:
Fair-good
ELECTROENCEPHALOGRAPHER IMPRESSION(S):
Background
Medium amplitude
Organization of anterior-posterior voltage gradient: Fair-good
Asymmetries of background activity noted: Alpha frequency maximum, typically theta from the right hemisphere compared with left-sided routine alpha
Sleep
Drowsiness present
Photic Stimulation
Failed to activate the record
ECG
No dysrhythmias
--- NOTE | 2025-07-04 15:19 | PTCARENOTE ---
Addendum entered by Erum Cantu RN 07/04/25 15:23:
Pt was downgraded to IMU level of care.
Original Note:
Pt has remained AOx3 with occasional confused conversation, pleasant and cooperative. Heparin gtt was dc'd this am, Eliquis given. Pt took pills whole in applesauce with no s/s aspiration. Pt provided CHG bath, oral care, pericare and breakfast
ordered. Pt turned Q2H, purewick in place for incontinence. No BM. EEG and ECG done as per orders. Neuro checks WNL. Baseline left sided paralysis/contracture noted from prior CVA. Daughter Eva arrived at bedside late morning, multiple
questions re: medications and plan of care answered or referred to MD as appropriate. Call payton in reach, no futher needs verbalized.
--- NOTE | 2025-07-04 15:21 | PN.CDI ---
CDI
- -
CDI:
Physician Documentation Request
Admit Date: 07/01/25 18:49
Dear Doctor Mayuri,
Patient is admitted for pulmonary embolism.
Troponin elevation
Hospitalist states 'Elevated troponin 2/2 non-ischemic myocardial injury due to PE'
Pet Adoption Counselor states 'Elevated troponin, likely demand'
In an attempt to clarify potentially conflicting documentation, please clarify the etiology of the elevated troponin:
Non ischemic myocardial injury
Type II NE demand ischemia
Other
Use of terms such as suspected, likely, concern for, or probable (associated with a specific diagnosis that is being evaluated, monitored, or treated as if it exists) are acceptable and can be coded in the inpatient setting, when documented at the
time of discharge.
Thank you,
Sharmaine Herrera RN, BSN
CDI Specialist
tiger text
Please use your independent medical judgment in providing your response.
--- NOTE | 2025-07-04 16:14 | CM ---
Discharge POC: Return to [facility] for resumption of LTC.
[2025-07-04] MEDS: BRIVIACT 50 MG PO (19:41)
[2025-07-04] MEDS: LIORESAL 5 MG PO (21:28)
[2025-07-04] MEDS: XANAX 0.75 MG PO (21:28)
[2025-07-04] MEDS: PEPCID 20 MG PO (21:28)
--- NOTE | 2025-07-04 21:38 | PTCARENOTE ---
Received pt resting in bed, AAOx3 but forgetful at times. L sided paralysis from hx CVA. SR on tele, HR 60s. BP 110-130s/60s. + pulses. Afebrile. On RA. Spo2 95%. Lungs diminished. Occasional weak productive cough. + bowel sounds. Poor appetite on
low cholesterol/2g Na diet. Took pills whole in jello. Purewick in place draining yellow cloudy urine. Bathed with CHG.
[2025-07-05] VITALS (11 sets, daily range): BP systolic 101–139; BP diastolic 50–79; BMI 26.3
[2025-07-05 04:18] LABS: Hematocrit 33.4 % (37.0-47.0); Hemoglobin 10.9 g/dL (12.0-16.0); Mean Corp Hgb Conc. 32.6 g/dL (33.0-37.0); Mean Corpuscular Volume 84.8 fL (81.0-99.0); Platelet Count 198 10^3/uL (130-400); Red Cell Dist. Width 12.5 % (11.5-14.5)
[2025-07-05 05:58] LABS: Blood Urea Nitrogen 17 mg/dl (7-17); Calcium 9.0 mg/dl (8.4-10.2); Carbon Dioxide 26 mmol/L (22-30); Chloride 105 mmol/L (98-107); Estimated Creatinine Clearance 60 ml/min; Glucose 93 mg/dl (70-99); Magnesium 1.9 mg/dl (1.6-2.3); Potassium 3.8 mmol/L (3.5-5.1); Sodium 136 mmol/L (135-145); eGFR > 60.00
--- NOTE | 2025-07-05 08:43 | W.PN.HOSP.TC ---
Today's Communication/Plan
-
stable for downgrade to Tele
bowel regimen
Assessment / Plan
Assessment / Plan
Physical exam:
General: No acute distress, appeared comfortable at this time
HEENT: Normocephalic, Atraumatic and Moist Mucous Membranes
Respiratory: Clear to Auscultation; Negative Wheezes, Rales or Rhonchi
Cardiac: Regular Rhythm and S1/S2
GI: Soft, Nontender and Nondistended
Musculoskeletal: No Clubbing, No Cyanosis and No Edema
Neuro: Lethargic but arousable, oriented x3, conversant coherent
Psych: Calm
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
Acute hypoxic respiratory failure d/t Acute PE
heparin gtt transitioned to Eliquis
Pulmonary consult appreciated
Venous Duplex appreciated no DVT
ECHO appreciated EF 62%
weaned off oxygen supplementation
New Onset Sz 07/03
rapid response called when patient suddenly became unresponsive with Left sided gaze fixation, reportedly lasting minutes, spontaneously resolved
Patient shortly after developed a second episode, stiffening, unresponsiveness, gaze deviation, aborted with once IV Valium 5 mg, noted post-ictal afterwards
CT head noted no acute abn's
Neuro eval appreciated pt started on Briviact
Transferred to ICU for closer monitoring, since downgraded to IMU with clinical improvement stability
Routine EEG appreciated no sz activity
Briviact transitioned to PO
Possible Benzo withdrawal contributing (on Xanax 1 mg HS for years, not resumed on admission, missed two days, though withdrawal is more typically seen in patients taking the medication multiple times a day)
Also possible Late onset sz d/o following relatively recent severe Stroke
Home Xanax resumed at reduced dose for now 0.75 mg HS- tolerating
#Non ischemic myocardial injury vs Type II [place] demand ischemia
Troponin peak 0.106 since trended down
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
Neurosurgery contacted in the ER and cleared for full anticoagulation
CVA was treated at [facility], records requested
cont home Gabapentin and baclofen
cont statin
QT prolongation 509 since improved to 468
vehicle monitor technician
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
Mild Anemia
monitor
Vascular dementia
Depression
Continue monitor behavioral and mental status
Lexapro resumed with improvement in QT prolongation as noted above.
Hx Hypertension
Hypotension systolic 80s noted early in hospital course
improved with hold home cozaar 100 mg daily
resumed Cozaar at reduced dose 25 mg daily w/ holding parameters, tolerating well
monitor and titrate antihypertensive as necessary
Hyperlipidemia:
Continue home statin
Constipation
senokot-S Miralax
DVT prophylaxis:
Eliquis
CODE STATUS:
DNR
Stable for downgrade to Tele
Discussed with patient and patient's daughter Eva
I spent a total of 45 minutes with the patient or on the floor. More than 50% of this time involved counseling and coordination of care.
Anticipated Discharge: 24 - 48 hours
Subjective/Interval History
-
Date of Service: July 05, 2025
No acute distress, sitting up comfortably in bed. Patient reports fatigue. AOx3 conversant coherent.
Objective Data
-
Labs:
Laboratory Results
07/05/25 07/05/25
03:48 04:45
WBC 4.6 L
Hgb 10.9 L
Hct 33.4 L
Plt Count 198 D
Sodium Cancelled 136
Potassium Cancelled 3.8
Chloride Cancelled 105
Carbon Dioxide Cancelled 26
BUN Cancelled 17
Creatinine Cancelled 0.7
Glucose Cancelled 93
Calcium Cancelled 9.0
Vital Signs:
Vital Signs
Temp Pulse Resp BP Pulse Ox
98.5 F 61 15 129/59 93
07/05/25 07:41 07/05/25 06:00 07/05/25 06:00 07/05/25 04:46 07/05/25 06:00
I&O
07/04/25 07/05/25 07/06/25
06:59 06:59 06:59
Intake Total 475 / 482 594 / 594
Output Total 850 / 850 650 / 650
Balance -375 / -368 -56 / -56
[2025-07-05] MEDS: CRESTOR 5 MG PO (08:58)
[2025-07-05] MEDS: BRIVIACT 50 MG PO ×2 (08:58→19:26)
[2025-07-05] MEDS: THERAGRAN 1 TABLET PO (08:59)
[2025-07-05] MEDS: NEURONTIN 100 MG PO (08:59)
[2025-07-05] MEDS: ELIQUIS 5 MG PO ×2 (08:59→19:26)
[2025-07-05] MEDS: COZAAR 25 MG PO (08:59)
[2025-07-05] MEDS: LEXAPRO 10 MG PO (08:59)
[2025-07-05] MEDS: LIDOCAINE 4% PATCH 1 PATCH TOPICAL (09:00)
--- NOTE | 2025-07-05 10:53 | W.PN.UPDATE ---
Update Note
Progress Note Update
stable for downgrade to Tele
--- NOTE | 2025-07-05 11:32 | PTCARENOTE ---
Patient downgraded to tele level. VSS. Weaned to RA; pulse ox 94%. Patient without a bm since admission. Hospitalist notified. Orders for bowel regimen obtained.
[2025-07-05] MEDS: SENOKOT-S 1 TABLET PO ×2 (11:34→19:26)
[2025-07-05] MEDS: MIRALAX 17 GRAMS PO (11:34)
--- NOTE | 2025-07-05 14:39 | TRANSFER ---
Patient transferred with belongings to . Daughter, Lizz, notified of transfer.
--- NOTE | 2025-07-05 14:53 | CM ---
Transferred to Room 413-1. Discharge POC: Return to [facility] for resumption of LTC.
--- NOTE | 2025-07-05 15:15 | TRANSFER ---
Received patient from ICU and pulled over to bed. Purewick removed. Patient 97% on RA. Oriented to room. Call payton within reach.
[2025-07-05] MEDS: ZYRTEC 10 MG PO (16:57)
[2025-07-05] MEDS: DULCOLAX 10 MG RECTAL (17:44)
[2025-07-05] MEDS: LIORESAL 5 MG PO (21:27)
[2025-07-05] MEDS: XANAX 0.75 MG PO (21:27)
[2025-07-05] MEDS: PEPCID 20 MG PO (21:27)
[2025-07-06] VITALS (7 sets, daily range): BP systolic 96–124; BP diastolic 42–65; BMI 26.3
--- NOTE | 2025-07-06 07:52 | W.PN.HOSP.TC ---
Today's Communication/Plan
-
see a/p
Assessment / Plan
Assessment / Plan
Physical exam:
General: No acute distress, appeared comfortable at this time
HEENT: Normocephalic, Atraumatic and Moist Mucous Membranes
Respiratory: Clear to Auscultation; Negative Wheezes, Rales or Rhonchi
Cardiac: Regular Rhythm and S1/S2
GI: Soft, Nontender and Nondistended
Musculoskeletal: No Clubbing, No Cyanosis and No Edema
Neuro: Very sedated Lethargic but arousable, oriented x3, conversant coherent
Psych: Calm
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
Acute hypoxic respiratory failure d/t Acute PE
heparin gtt transitioned to Eliquis
Pulmonary consult appreciated
Venous Duplex appreciated no DVT
ECHO appreciated EF 62%
weaned off oxygen supplementation
New Onset Sz 07/03
rapid response called when patient suddenly became unresponsive with Left sided gaze fixation, reportedly lasting minutes, spontaneously resolved
Patient shortly after developed a second episode, stiffening, unresponsiveness, gaze deviation, aborted with once IV Valium 5 mg, noted post-ictal afterwards
CT head noted no acute abn's
Neuro eval appreciated pt started on Briviact
Transferred to ICU for closer monitoring, since downgraded to Tele with clinical improvement stability
Routine EEG appreciated no sz activity
Briviact transitioned to PO
Possible Benzo withdrawal contributing (on Xanax 1 mg HS for years, not resumed on admission, missed two days, though withdrawal is more typically seen in patients taking the medication multiple times a day, also unusual to go straight to seizure
w/o other associate benzo withdrawal symptoms- patient was reporting feeling fine prior to sz event that day)
Also possible Late onset sz d/o following relatively recent severe Stroke (typically peak onset 6-12 months after stroke)
Home Xanax resumed at reduced dose for now 0.75 mg HS- tolerating
07/06 Oversedation concern for polypharmacy
Per discussion w/ daughter
Lexapro reduced to 5 mg daily
prn zyrtec discontinued, prn hydrocortisone cream for rash/itching ordered
Briviact further reduced to 25 mg bid (PO formulation not available in hospital, IV given)
Follow up repeat EEG
IVF support
#Non ischemic myocardial injury vs Type II [place] demand ischemia
Troponin peak 0.106 since trended down
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
Neurosurgery contacted in the ER and cleared for full anticoagulation
CVA was treated at [facility], records requested
cont home Gabapentin and baclofen
cont statin
QT prolongation 509 since improved to 468
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
Mild Anemia
monitor
Vascular dementia
Depression
Continue monitor behavioral and mental status
Lexapro resumed with improvement in QT prolongation as noted above. Reduced d/t concerns sedation as above
Hx Hypertension
Hypotension systolic 80s noted early in hospital course
improved with hold home cozaar 100 mg daily
resumed Cozaar at reduced dose 25 mg daily w/ holding parameters, tolerating well
monitor and titrate antihypertensive as necessary
Hyperlipidemia:
Continue home statin
Constipation
senokot-S Miralax
DVT prophylaxis:
Eliquis
CODE STATUS:
DNR
Stable for downgrade to Tele
Discussed with patient and patient's daughter Eva
I spent a total of 45 minutes with the patient or on the floor. More than 50% of this time involved counseling and coordination of care.
Anticipated Discharge: 24 - 48 hours
Subjective/Interval History
-
Date of Service: July 06, 2025
Drowsy/sedated for most of the day. Arousable, oriented x3
Objective Data
-
Labs:
Laboratory Results
07/06/25
07:25
WBC Pending
Hgb Pending
Hct Pending
Plt Count Pending
Sodium Pending
Potassium Pending
Chloride Pending
Carbon Dioxide Pending
BUN Pending
Creatinine Pending
Glucose Pending
Calcium Pending
Vital Signs:
Vital Signs
Temp Pulse Resp BP Pulse Ox
98.4 F 68 18 119/56 92
07/06/25 03:50 07/06/25 03:50 07/06/25 03:50 07/06/25 03:50 07/06/25 03:50
I&O
07/05/25 07/06/25 07/07/25
06:59 06:59 06:59
Intake Total 594 / 594 480 / 480
Output Total 650 / 650 300 / 300
Balance -56 / -56 180 / 180
[2025-07-06 08:14] LABS: Hematocrit 33.5 % (37.0-47.0); Hemoglobin 10.8 g/dL (12.0-16.0); Mean Corp Hgb Conc. 32.2 g/dL (33.0-37.0); Mean Corpuscular Volume 82.5 fL (81.0-99.0); Platelet Count 179 10^3/uL (130-400); Red Cell Dist. Width 12.4 % (11.5-14.5)
[2025-07-06 08:33] LABS: Blood Urea Nitrogen 18 mg/dl (7-17); Calcium 9.2 mg/dl (8.4-10.2); Carbon Dioxide 26 mmol/L (22-30); Chloride 106 mmol/L (98-107); Estimated Creatinine Clearance 52 ml/min; Glucose 110 mg/dl (70-99); Magnesium 1.7 mg/dl (1.6-2.3); Potassium 3.7 mmol/L (3.5-5.1); Sodium 137 mmol/L (135-145); eGFR > 60.00
[2025-07-06] MEDS: CRESTOR 5 MG PO (09:40)
[2025-07-06] MEDS: BRIVIACT 50 MG PO (09:40)
[2025-07-06] MEDS: COZAAR 25 MG PO (09:40)
[2025-07-06] MEDS: ELIQUIS 5 MG PO ×2 (09:40→20:49)
[2025-07-06] MEDS: SENOKOT-S 1 TABLET PO ×2 (09:40→20:49)
[2025-07-06] MEDS: MIRALAX 17 GRAMS PO (09:41)
[2025-07-06] MEDS: THERAGRAN 1 TABLET PO (09:41)
[2025-07-06] MEDS: NEURONTIN 100 MG PO (09:41)
[2025-07-06] MEDS: LIDOCAINE 4% PATCH 1 PATCH TOPICAL (09:41)
[2025-07-06] MEDS: LEXAPRO 10 MG PO (09:41)
[2025-07-06] MEDS: NSS 1000 IV (16:16)
--- NOTE | 2025-07-06 20:40 | PTCARENOTE ---
Addendum entered by Lupis Rincon RN 07/06/25 23:37:
Briviact 25 IV given as ordered. Notified LUIZA Santiago of patient drowsiness. TIMBER MANAGEMENT SPECIALIST to see patient. will hold baclofen as per advise. Administered Tylenol PO for neck pain.
Original Note:
Patient is due to get Briviact 25 PO now. Med label says ' do not cut/ crush'. Notified Pharmacy. Pharmacy will reach out to MD regarding the med.
[2025-07-06] MEDS: TYLENOL 650 MG PO (20:49)
[2025-07-06] MEDS: LIORESAL PO (20:50)
[2025-07-06] MEDS: PEPCID 20 MG PO (20:51)
[2025-07-06] MEDS: BRIVIACT 25 MG IV (22:22)
[2025-07-07] VITALS (8 sets, daily range): BP systolic 91–130; BP diastolic 45–65
[2025-07-07] MEDS: XANAX 0.75 MG PO ×2 (00:12→21:52)
[2025-07-07] MEDS: NSS 1000 IV ×2 (03:40→19:09)
[2025-07-07] MEDS: BRIVIACT 25 MG IV ×2 (09:24→19:31)
[2025-07-07] MEDS: CRESTOR 5 MG PO (09:25)
[2025-07-07] MEDS: LIDOCAINE 4% PATCH 1 PATCH TOPICAL (09:26)
[2025-07-07] MEDS: SENOKOT-S 1 TABLET PO ×2 (09:28→19:30)
[2025-07-07] MEDS: COZAAR 25 MG PO (09:28)
[2025-07-07] MEDS: MIRALAX 17 GRAMS PO (09:28)
[2025-07-07] MEDS: ELIQUIS 5 MG PO ×2 (09:32→19:30)
[2025-07-07] MEDS: THERAGRAN 1 TABLET PO (09:32)
[2025-07-07 09:53] LABS: Hematocrit 32.1 % (37.0-47.0); Hemoglobin 10.1 g/dL (12.0-16.0); Mean Corp Hgb Conc. 31.5 g/dL (33.0-37.0); Mean Corpuscular Volume 85.4 fL (81.0-99.0); Platelet Count 179 10^3/uL (130-400); Red Cell Dist. Width 12.4 % (11.5-14.5)
[2025-07-07 10:43] LABS: Blood Urea Nitrogen 19 mg/dl (7-17); Calcium 8.4 mg/dl (8.4-10.2); Carbon Dioxide 28 mmol/L (22-30); Chloride 108 mmol/L (98-107); Estimated Creatinine Clearance 46 ml/min; Glucose 98 mg/dl (70-99); Magnesium 1.8 mg/dl (1.6-2.3); Potassium 3.8 mmol/L (3.5-5.1); Sodium 138 mmol/L (135-145); eGFR > 60.00
[2025-07-07] MEDS: LEXAPRO 5 MG PO (10:59)
--- NOTE | 2025-07-07 12:10 | EEG.RPT ---
Electroencephalogram Report
Report
LESS THAN 1 HOUR REPORT
LESS THAN 1 HOUR EEG INTERPRETATION:
Mild to moderately abnormal EEG for age mild diffuse bihemispheric slowing
CLINICAL CORRELATION:
This study was suggestive of diffuse cortical dysfunction without focal abnormality. No seizures were recorded. If concerns remain regarding seizures, consideration for prolonged EEG recording may be given.
In comparison with the study performed previously, this study appears to not demonstrate an asymmetric cortical response.
Clinical correlation is advised.
METHODS:
A 21 channel digitized electroencephalogram (EEG) was performed in the Clinical Neurophysiology Laboratory. The 10/20 international system of electrode placement was used with ECG and lateral/vertical eye movements recorded. The [employer] quantitative
measurement system was utilized.
QUALITY OF STUDY:
Good
ELECTROENCEPHALOGRAPHER IMPRESSION(S):
Background
Medium amplitude fairly to poorly organized anterior-posterior voltage gradient of theta maximal activity
There were no significant asymmetries of background activity noted.
Sleep
Drowsiness present
Photic Stimulation
Failed to activate the record
ECG
Normal sinus rhythm
--- NOTE | 2025-07-07 14:05 | W.PN.HOSP.TC ---
Today's Communication/Plan
-
see a/p
Assessment / Plan
Assessment / Plan
Physical exam:
General: No acute distress, appeared comfortable at this time
HEENT: Normocephalic, Atraumatic and Moist Mucous Membranes
Respiratory: Clear to Auscultation; Negative Wheezes, Rales or Rhonchi
Cardiac: Regular Rhythm and S1/S2
GI: Soft, Nontender and Nondistended
Musculoskeletal: No Clubbing, No Cyanosis and No Edema
Neuro: Very sedated Lethargic but arousable, oriented x3, conversant coherent
Psych: Calm
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
Acute hypoxic respiratory failure d/t Acute PE
heparin gtt transitioned to Eliquis, loading dose skipped d/t hx hemorrhagic stroke and interaction with home medication Lexapro, tolerating well stable respiratory status on room air no significant tachycardia or anemia
Pulmonary consult appreciated
Venous Duplex appreciated no DVT
ECHO appreciated EF 62%
weaned off oxygen supplementation
07/07 Coughing likely 2/2 known PE as above
CXR noted no acute abn's
speech eval appreciated appropriate for regular diet, meds whole in puree per pt preference, general aspiration precautions.
New Onset Sz 07/03
rapid response called when patient suddenly became unresponsive with Left sided gaze fixation, reportedly lasting minutes, spontaneously resolved
Patient shortly after developed a second episode, stiffening, unresponsiveness, gaze and head deviation to left, aborted with once IV Valium 5 mg, noted post-ictal afterwards
CT head noted no acute abn's
Neuro eval appreciated pt started on Briviact
Transferred to ICU for closer monitoring, since downgraded to Tele with clinical improvement stability
Routine EEG appreciated no sz activity
Briviact transitioned to PO
Possible Benzo withdrawal contributing (on Xanax 1 mg HS for years, not resumed on admission, missed two days, though withdrawal is more typically seen in patients taking the medication multiple times a day, also unusual to go straight to seizure
w/o other associate benzo withdrawal symptoms- patient was reporting feeling fine prior to sz event that day)
Also possible Late onset sz d/o following relatively recent severe Stroke (typically peak onset 6-12 months after stroke)
Home Xanax resumed at reduced dose for now 0.75 mg HS- tolerating
07/06 Oversedation concern for polypharmacy
Per discussion w/ daughter
Lexapro reduced to 5 mg daily
prn zyrtec discontinued, prn hydrocortisone cream for rash/itching ordered
Briviact further reduced to 25 mg bid (PO formulation not available in hospital, IV given)
Follow up repeat EEG noted no sz activity
Baclofen discontinued per discussion with daughter
IVF support
#Non ischemic myocardial injury vs Type II [place] demand ischemia
Troponin peak 0.106 since trended down
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
Neurosurgery contacted in the ER and cleared for full anticoagulation
CVA was treated at [facility], records requested
cont home Gabapentin and baclofen
cont statin
QT prolongation 509 since improved to 468
diet therapist
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
Mild Anemia
monitor
Vascular dementia
Depression
Continue monitor behavioral and mental status
Lexapro resumed with improvement in QT prolongation as noted above. Reduced d/t concerns sedation as above
Hx Hypertension
Hypotension systolic 80s (lowest 82/50) noted early in hospital course, patient also reported Dizziness prior to admission.
improved with hold home cozaar 100 mg daily
resumed Cozaar at reduced dose 25 mg daily w/ holding parameters, tolerating well
monitor and titrate antihypertensive as necessary
Hyperlipidemia:
Continue home statin
Constipation
senokot-S Miralax
DVT prophylaxis:
Eliquis
CODE STATUS:
DNR
Stable for downgrade to Tele
Discussed with patient and patient's daughter Eva
I spent a total of 45 minutes with the patient or on the floor. More than 50% of this time involved counseling and coordination of care.
Anticipated Discharge: 24 - 48 hours
Subjective/Interval History
-
Date of Service: July 07, 2025
More awak and alert today compare yesterday but still lethargic, aoursable, conversant coherent. Daughter at bedside expressing concern regarding patient coughing.
Objective Data
-
Labs:
Laboratory Results
07/07/25
09:23
WBC 3.4 L
Hgb 10.1 L
Hct 32.1 L
Plt Count 179
Sodium 138
Potassium 3.8
Chloride 108 H
Carbon Dioxide 28
BUN 19 H
Creatinine 0.9
Glucose 98
Calcium 8.4
Vital Signs:
Vital Signs
Temp Pulse Resp BP Pulse Ox
98.4 F 70 16 91/45 93
07/07/25 11:17 07/07/25 11:17 07/07/25 11:17 07/07/25 11:17 07/07/25 11:17
I&O
07/06/25 07/07/25 07/08/25
06:59 06:59 06:59
Intake Total 480 / 480 1340 / 1340
Output Total 300 / 300
Balance 180 / 180 1340 / 1340
--- NOTE | 2025-07-07 14:46 | CM ---
Chart reviewed. Care ongoing.
Plan is for patient to return to [facility] when medically stable
--- NOTE | 2025-07-07 16:10 | PTCARENOTE ---
Patient ordered UA. Patient is incontinent. Patient and daughter requesting nursing attempt to intermittently catch urine on bed may and refusing straight cath method. Dr. Messina is made aware.
--- NOTE | 2025-07-07 16:22 | PTOTSP ---
Speech Therapy Evaluation:
Pt presents with swallow function that is likely at/near baseline at bedside. Pt with previous CVA with residual L deficits, resulting in reduced strength and ROM of L oral structures and subsequent oral differences. Pt with adequate insight
expressing she needs to take small bites/sips and be cautious with positioning due to tenancy for liquid to go down the L. No overt s/sx of aspiration across trials, CXR without acute cardiopulmonary process, pt afebrile, and on room air. Pt with
dysphagia hx, however has been on regular solid and thin liquid diet.
Recommend:
1. Continue regular solids and thin liquids
2. Medications whole in puree (pt preference)
3. General aspiration precautions
4. BUSINESS DEVELOPMENT ENGINEER to follow to monitor tolerance of diet and determine if pt would benefit from imaging, however does not appear indicated at this time
--- NOTE | 2025-07-07 19:55 | PTCARENOTE ---
Addendum entered by Brenda Stearns RN 07/07/25 20:07:
Per RETORT FORKER, ok to DC IVFs and continue to monitor BP.
Original Note:
At change of shift, patient found to have BP of 130/65, HR 67. Daughter present via facetime on iphone during all patient care and heard what the BP was and requested to speak with the nurse/have BP meds changed as pt. has a CVA hx. This nurse spoke
with daughter over facetime and explained that IVFs were added for pt. d/t hypotension. Daughter disagreed and stated that the drs. were messing with all the meds and they don't know pt. hx and are treating her in a vacuum,' This nurse assured
daughter that I would reach out to provider regarding elevated BP and possibility of stopping IVFs to which daughter said 'the fluids don't need to be stopped, she needs more meds to lower her BP. If she has a stroke tonight you people are going to
have a real problem.' Provider notified regarding family member concerns.
[2025-07-07] MEDS: PEPCID 20 MG PO (21:52)
[2025-07-07] MEDS: NEURONTIN 100 MG PO (21:52)
[2025-07-08] VITALS (7 sets, daily range): BP systolic 116–147; BP diastolic 54–84
[2025-07-08 08:32] LABS: Hematocrit 31.1 % (37.0-47.0); Hemoglobin 10.3 g/dL (12.0-16.0); Mean Corp Hgb Conc. 33.1 g/dL (33.0-37.0); Mean Corpuscular Volume 83.6 fL (81.0-99.0); Platelet Count 182 10^3/uL (130-400); Red Cell Dist. Width 12.2 % (11.5-14.5)
--- NOTE | 2025-07-08 08:36 | W.PN.HOSP.TC ---
Today's Communication/Plan
-
see a/p
Assessment / Plan
Assessment / Plan
Physical exam:
General: No acute distress, appeared comfortable at this time
HEENT: Normocephalic, Atraumatic and Moist Mucous Membranes
Respiratory: Clear to Auscultation; Negative Wheezes, Rales or Rhonchi
Cardiac: Regular Rhythm and S1/S2
GI: Soft, Nontender and Nondistended
Musculoskeletal: No Clubbing, No Cyanosis and No Edema
Neuro: Very sedated Lethargic but arousable, oriented x3, conversant coherent
Psych: Calm
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
Acute hypoxic respiratory failure d/t Acute PE
heparin gtt transitioned to Eliquis, loading dose skipped d/t hx hemorrhagic stroke and interaction with home medication Lexapro, tolerating well stable respiratory status on room air no significant tachycardia or anemia
Pulmonary consult appreciated
Venous Duplex appreciated no DVT
ECHO appreciated EF 62%
weaned off oxygen supplementation
07/07 Coughing likely 2/2 known PE as above
CXR noted no acute abn's
speech eval appreciated appropriate for regular diet, meds whole in puree per pt preference, general aspiration precautions.
New Onset Sz 07/03
rapid response called when patient suddenly became unresponsive with Left sided gaze fixation, reportedly lasting minutes, spontaneously resolved
Patient shortly after developed a second episode, stiffening, unresponsiveness, gaze and head deviation to left, aborted with once IV Valium 5 mg, noted post-ictal afterwards
CT head noted no acute abn's
Neuro eval appreciated pt started on Briviact, follow up evaluation 07/08 appreciated
Transferred to ICU for closer monitoring, since downgraded to Tele with clinical improvement stability
Routine EEG appreciated no sz activity
Briviact transitioned to PO
Possible Benzo withdrawal contributing (on Xanax 1 mg HS for years, not resumed on admission, missed two days, though withdrawal is more typically seen in patients taking the medication multiple times a day, also unusual to go straight to seizure
w/o other associate benzo withdrawal symptoms- patient was reporting feeling fine prior to sz event that day)
Most likely Late onset sz d/o following relatively recent severe Stroke (typically peak onset 6-12 months after stroke), had Left fixed gaze deviation during sz episodes indicating sz focus was on right side where her stroke was, also neuro review
of EEGs (07/04 and 07/07) notes the sz focus was likely stroke bed.
Home Xanax resumed at reduced dose for now 0.75 mg HS- tolerating
07/06 Oversedation concern for polypharmacy
Per discussion w/ daughter
Lexapro reduced to 5 mg daily
prn zyrtec discontinued, prn hydrocortisone cream for rash/itching ordered
Briviact further reduced to 25 mg bid (PO formulation not available in hospital, IV given)
Follow up repeat EEG noted no sz activity
Home Baclofen discontinued per discussion with daughter
Mental status since improved
#Non ischemic myocardial injury vs Type II [place] demand ischemia
Troponin peak 0.106 since trended down
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
Neurosurgery contacted in the ER and cleared for full anticoagulation
CVA was treated at [facility], records requested
cont home Gabapentin, Baclofen discontinued as above
cont statin
QT prolongation 509 since improved to 468
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
Mild Anemia
monitor
Vascular dementia
Depression
Continue monitor behavioral and mental status
Lexapro resumed with improvement in QT prolongation as noted above. Reduced d/t concerns sedation as above
Hx Hypertension
Hypotension systolic 80s (lowest 82/50) noted early in hospital course, patient also reported Dizziness prior to admission.
improved with hold home cozaar 100 mg daily
resumed Cozaar at reduced dose 25 mg daily w/ holding parameters, tolerating well
monitor and titrate antihypertensive as necessary
Hydralazine prn SBP>150 or DBP>100
Hyperlipidemia:
Continue home statin
Constipation
senokot-S Miralax
Hemorrhoids
preparation H cream prn
Anusol rectal HS
DVT prophylaxis:
Eliquis
CODE STATUS:
DNR
Discussed with patient, patient's cousin Pauline, and patient's daughter Eva
I spent a total of 45 minutes with the patient or on the floor. More than 50% of this time involved counseling and coordination of care.
Anticipated Discharge: 24 - 48 hours
Subjective/Interval History
-
Date of Service: July 08, 2025
More awake and alert but appears to be 'in a daze.' AOx3 conversant coherent. Reports burning with bowel movements also reports hx hemorrhoids.
Objective Data
-
Labs:
Laboratory Results
07/08/25
07:35
WBC 4.7 L
Hgb 10.3 L
Hct 31.1 L
Plt Count 182
Sodium Pending
Potassium Pending
Chloride Pending
Carbon Dioxide Pending
BUN Pending
Creatinine Pending
Glucose Pending
Calcium Pending
Vital Signs:
Vital Signs
Temp Pulse Resp BP Pulse Ox
98.2 F 63 14 119/54 93
07/08/25 03:54 07/08/25 03:54 07/08/25 03:54 07/08/25 03:54 07/08/25 03:54
I&O
07/07/25 07/08/25 07/09/25
06:59 06:59 06:59
Intake Total 1340 / 1340 360 / 360
Balance 1340 / 1340 360 / 360
[2025-07-08] MEDS: SENOKOT-S 1 TABLET PO (08:59)
[2025-07-08] MEDS: LEXAPRO 5 MG PO (08:59)
[2025-07-08] MEDS: BRIVIACT 25 MG IV ×2 (08:59→20:04)
[2025-07-08] MEDS: COZAAR 25 MG PO (08:59)
[2025-07-08] MEDS: CRESTOR 5 MG PO (08:59)
[2025-07-08] MEDS: THERAGRAN 1 TABLET PO (09:00)
[2025-07-08] MEDS: MIRALAX 17 GRAMS PO (09:00)
[2025-07-08] MEDS: FLUSH (NSS) 1 FLUSH IV (09:00)
[2025-07-08] MEDS: LIDOCAINE 4% PATCH 1 PATCH TOPICAL (09:00)
[2025-07-08] MEDS: ELIQUIS 5 MG PO ×2 (09:00→20:03)
[2025-07-08 09:02] LABS: Blood Urea Nitrogen 15 mg/dl (7-17); Calcium 8.7 mg/dl (8.4-10.2); Carbon Dioxide 27 mmol/L (22-30); Chloride 110 mmol/L (98-107); Estimated Creatinine Clearance 60 ml/min; Glucose 89 mg/dl (70-99); Magnesium 1.7 mg/dl (1.6-2.3); Potassium 3.8 mmol/L (3.5-5.1); Sodium 139 mmol/L (135-145); eGFR > 60.00
--- NOTE | 2025-07-08 16:38 | PTCARENOTE ---
Pt AAO x3, sl forgetful. Moves RUE slowly; states 'Can't move' RLE, but does move Rt leg when turning/positioning. Pt with Lt side hemiparesis; sensation (+) to LUE/LLE. VSS. Telemetry:NSR. On room air- pulse ox 95%, no SOB noted; occ dry,
non-productive cough. Abd large, soft, kristofer PO; rodolfo dysphagia noted. Incont soft BM. Incont urine. Resting in bed at present, no c/o. Will continue to monitor.
[2025-07-08] MEDS: PREPARATION H MAX STRENGTH PAIN RELIEF CREAM 1 APPLIC RECTAL (17:40)
--- NOTE | 2025-07-08 18:01 | W.PN.NEURO.1 ---
Today's Communication / Plan
-
35' spent speaking with patient and dtr re: EEG findings, my formulation of what is happening, and options include continuing BRV 25 BID, monitoring off sz meds, or switch to Vimpat 50 BID. they don't want to try Zonisamide which would be my choice
b/c she doesn't drink enough water, concern kidney stones, though she's never had one. None of the options will guarantee that she won't have another seizure tonight.
all questions answered however dtr has not made a decision. will sign off again pls re-engage if she has new questions.
Neuro Assessment/Plan
Assessment
Acute onset 2 episodes of generalized tonic-clonic movements suggested to be seizures in a patient with a relatively recent hemorrhagic stroke requiring craniotomy at an outside institution.
Additional risk factor includes potential withdrawal from the use of benzodiazepines although the patient was utilizing a low-dose
EEG 9 showing right hemispheric focal slowing, which resolved on EEG 07/07, suggests that the focal slowing was post-ictal, and that the stroke bed was the sz focus.
Certainly sz could be a combination of sz being late effect of hemorrhagic stroke along with the benzo withdrawal, that potentially without either one of these things, the seizures may not have happened.
Plan
agree with restarting Xanax at lower dose 0.75 HS
options include continuing BRV 25 BID, monitoring off sz meds, or switch to Vimpat 50 BID
Subjective/Objective
Subjective Data
Date of Service: July 08, 2025
h/o right Hemorrhagic Stroke ~6 months ago presented from LTC with desaturation found to have PE treated with hep gtt and transitioned to DOAC stable respiratory status room air. Hospital course complicated with sz possible benzo withdrawal vs late
onset due to stroke. Started on Briviact reduced to 25 mg BID d/t concerns side effects pt over sedated 'in a daze.'
she was on Xanax 1 mg bedtime to sleep, which she has taken for many years. Missed Xanax last Thu/Thursday and had sz on Thursday. Xanax restarted 0.75 HS and is working well.
Objective Data
Vital Signs
Temp Pulse Resp BP Pulse Ox
36.8 C 61 16 141/67 96
07/08/25 16:38 07/08/25 16:38 07/08/25 16:38 07/08/25 16:38 07/08/25 16:38
Lab Results
07/08/25 07:35
07/08/25 07:35
APTT Cancelled 07/04/25 08:00
Sodium 139 mmol/L (135-145) 07/08/25 07:35
Potassium 3.8 mmol/L (3.5-5.1) 07/08/25 07:35
BUN 15 mg/dl (7-17) 07/08/25 07:35
Glucose 89 mg/dl (70-99) 07/08/25 07:35
Calcium 8.7 mg/dl (8.4-10.2) 07/08/25 07:35
Phosphorus 3.3 mg/dl (2.5-4.5) 07/08/25 07:35
Patient Allergies
bupropion Allergy (Verified 07/06/25 16:02)
Unknown
[2025-07-08] MEDS: ANUSOL HC 25 MG RECTAL (19:44)
[2025-07-08] MEDS: SENOKOT-S PO (20:37)
[2025-07-08] MEDS: PEPCID 20 MG PO (21:43)
[2025-07-08] MEDS: XANAX 0.75 MG PO (21:43)
[2025-07-08] MEDS: NEURONTIN 100 MG PO (21:43)
[2025-07-09 03:16] VITALS: BP 127/63
--- NOTE | 2025-07-09 06:50 | W.PN.HOSP.TC ---
Today's Communication/Plan
-
see a/p
Assessment / Plan
Assessment / Plan
Physical exam:
General: No acute distress, appeared comfortable at this time
HEENT: Normocephalic, Atraumatic and Moist Mucous Membranes
Respiratory: Clear to Auscultation; Negative Wheezes, Rales or Rhonchi
Cardiac: Regular Rhythm and S1/S2
GI: Soft, Nontender and Nondistended
Rectal: no external hemorrhoids visualized
Musculoskeletal: No Clubbing, No Cyanosis and No Edema
Neuro: AO x3, conversant coherent, mentation seems a bit slow, flat affect
Psych: Calm
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
Acute hypoxic respiratory failure d/t Acute PE
heparin gtt transitioned to Eliquis, loading dose skipped d/t hx hemorrhagic stroke and interaction with home medication Lexapro, tolerating well stable respiratory status on room air no significant tachycardia or anemia
Pulmonary consult appreciated
Venous Duplex appreciated no DVT
ECHO appreciated EF 62%
weaned off oxygen supplementation
Outpatient follow up Hematology
07/07 Coughing likely 2/2 known PE as above
CXR noted no acute abn's
speech eval appreciated appropriate for regular diet, meds whole in puree per pt preference, general aspiration precautions.
New Onset Sz 07/03
rapid response called when patient suddenly became unresponsive with Left sided gaze fixation, reportedly lasting minutes, spontaneously resolved
Patient shortly after developed a second episode, stiffening, unresponsiveness, gaze and head deviation to left, aborted with once IV Valium 5 mg, noted post-ictal afterwards
CT head noted no acute abn's
Neuro eval appreciated pt started on Briviact, follow up evaluation 07/08 appreciated
Transferred to ICU for closer monitoring, since downgraded to Tele with clinical improvement stability
Routine EEG appreciated no sz activity
Briviact transitioned to PO
Possible Benzo withdrawal contributed (on Xanax 1 mg HS for years, not resumed on admission, missed two days, though withdrawal is more typically seen in patients taking Xanax multiple times a day and/or higher doses, also unusual to go straight to
seizure w/o other associate benzo withdrawal symptoms- patient was reported and appeared fine prior to sz event that day)
Most likely Late onset sz d/o following relatively recent severe Stroke (typically peak onset late sz 6-12 months after stroke), had Left fixed gaze deviation during sz episodes indicating sz focus was on right side where her stroke was, also neuro
review of EEGs (07/04 and 07/07) notes the sz focus was likely stroke bed.
Suspect chronic xanax use and overall polypharmacy sedation may have masked prior sz episodes until this event.
Home Xanax resumed at reduced dose for now 0.75 mg HS- tolerating. Strongly encourage/funeral pre arrangement counselor patient and patient's daughter to consider further future reduction/taper to lowest therapeutic dose in order to avoid benzo dependence and oversedation
(so far very resistant to recommendation).
07/06 Oversedation concern for polypharmacy
Per discussion w/ daughter
Lexapro reduced to 5 mg daily
prn zyrtec discontinued, prn hydrocortisone cream for rash/itching ordered
Briviact further reduced to 25 mg bid (PO formulation not available in hospital, IV given), lowest possible dose
Follow up repeat EEG noted no sz activity
Home Baclofen discontinued per discussion with daughter
Mental status since improved
#Non ischemic myocardial injury vs Type II [place] demand ischemia
Troponin peak 0.106 since trended down
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
Neurosurgery contacted in the ER and cleared for full anticoagulation
CVA was treated at [facility], records requested
cont home Gabapentin moved to instead of morning, Baclofen discontinued as above
cont statin
QT prolongation 509 since improved to 468
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
Mild Anemia
monitor
Vascular dementia
Depression
Continue monitor behavioral and mental status
Lexapro resumed with improvement in QT prolongation as noted above. Reduced d/t concerns sedation as above
Hx Hypertension
Hypotension systolic 80s (lowest 82/50) noted early in hospital course, patient also reported Dizziness prior to admission.
improved with hold home cozaar 100 mg daily
resumed Cozaar at reduced dose 25 mg daily w/ holding parameters, tolerating well
monitor and titrate antihypertensive as necessary
Hydralazine prn SBP>150 or DBP>100
Hyperlipidemia:
Continue home statin
Constipation
Senokot-S
avoiding Miralax for now per patient/patient's daughter's preference
resolved at this time
Suspected Internal Hemorrhoids
Patient reporting burning/pain with bowel movements
no external hemorrhoids visualized on exam
preparation H cream prn
short course Anusol rectal suppository HS x3 days
Continue scheduled Senokot-s to avoid straining
DVT prophylaxis:
Eliquis
CODE STATUS:
DNR
Return to LTC when stable for discharge
Discussed with patient and patient's daughter DEVANTE Velasquez
I spent a total of 45 minutes with the patient or on the floor. More than 50% of this time involved counseling and coordination of care.
Anticipated Discharge: 24 - 48 hours
Subjective/Interval History
-
Date of Service: July 09, 2025
No acute distress resting comfortably in bed. Overall reports feeling well. No burning pain with bowel movements today but also notes no bowel movements. Last bowel movements yesterday. Reports hemorrhoid cream did help with pain.
Objective Data
-
Labs:
Laboratory Results
07/09/25
05:51
WBC Pending
Hgb Pending
Hct Pending
Plt Count Pending
Sodium Pending
Potassium Pending
Chloride Pending
Carbon Dioxide Pending
BUN Pending
Creatinine Pending
Glucose Pending
Calcium Pending
Vital Signs:
Vital Signs
Temp Pulse Resp BP Pulse Ox
97.4 F 58 16 127/63 92
07/09/25 03:16 07/09/25 03:16 07/09/25 03:16 07/09/25 03:16 07/09/25 03:16
I&O
07/07/25 07/08/25 07/09/25
06:59 06:59 06:59
Intake Total 1340 / 1340 360 / 360 440 / 440
Balance 1340 / 1340 360 / 360 440 / 440
[2025-07-09 07:05] VITALS: BP 133/59
[2025-07-09 08:49] LABS: Blood Urea Nitrogen 12 mg/dl (7-17); Calcium 9.2 mg/dl (8.4-10.2); Carbon Dioxide 26 mmol/L (22-30); Chloride 109 mmol/L (98-107); Estimated Creatinine Clearance 60 ml/min; Glucose 82 mg/dl (70-99); Magnesium 1.7 mg/dl (1.6-2.3); Potassium 4.0 mmol/L (3.5-5.1); Sodium 139 mmol/L (135-145); eGFR > 60.00
[2025-07-09 09:16] LABS: Hematocrit 31.5 % (37.0-47.0); Hemoglobin 10.4 g/dL (12.0-16.0); Mean Corp Hgb Conc. 33.0 g/dL (33.0-37.0); Mean Corpuscular Volume 83.6 fL (81.0-99.0); Platelet Count 240 10^3/uL (130-400); Red Cell Dist. Width 11.9 % (11.5-14.5)
[2025-07-09] MEDS: LIDOCAINE 4% PATCH 1 PATCH TOPICAL (09:48)
[2025-07-09] MEDS: ELIQUIS 5 MG PO ×2 (09:49→21:07)
[2025-07-09] MEDS: BRIVIACT 25 MG IV ×2 (09:49→21:05)
[2025-07-09] MEDS: LEXAPRO 5 MG PO (09:50)
[2025-07-09] MEDS: THERAGRAN 1 TABLET PO (09:50)
[2025-07-09] MEDS: COZAAR 25 MG PO (09:50)
[2025-07-09] MEDS: CRESTOR 5 MG PO (09:50)
[2025-07-09] MEDS: MIRALAX PO (09:55)
[2025-07-09] MEDS: SENOKOT-S PO (09:55)
[2025-07-09 11:43] VITALS: BP 119/64
[2025-07-09 15:13] VITALS: BP 135/74
--- NOTE | 2025-07-09 17:53 | PTCARENOTE ---
Daughter and pt made this RN aware of a 'stabbing' and 'feeling like fire' pain when pt has a BM. Daughter also expressed concerns about seizure medications. Notified Dr. Messina, Dr. Messina at bedside and had discussed with pt and daughter about
continuing bowel regimen and anusol suppository, as well as continuation of Briviact. Pt reports no rectal pain for this RN. No further complaints at this time, pt resting comfortably in bed, call payton within reach.
[2025-07-09 19:00] VITALS: BP 128/62
[2025-07-09] MEDS: PEPCID 20 MG PO (21:07)
[2025-07-09] MEDS: SENOKOT-S 1 TABLET PO (21:07)
[2025-07-09] MEDS: NEURONTIN 100 MG PO (21:08)
[2025-07-09] MEDS: XANAX 0.75 MG PO (21:08)
[2025-07-09 23:00] VITALS: BP 108/71
[2025-07-09] MEDS: HYDROCORTISONE 1% CREAM 1 APPLIC TOPICAL (23:18)
[2025-07-09] MEDS: ATARAX 10 MG PO (23:52)
[2025-07-10 03:00] VITALS: BP 150/73
[2025-07-10] MEDS: ANUSOL HC RECTAL (03:35)
[2025-07-10 07:30] VITALS: BP 147/76
[2025-07-10 07:36] LABS: Hematocrit 35.9 % (37.0-47.0); Hemoglobin 11.7 g/dL (12.0-16.0); Mean Corp Hgb Conc. 32.6 g/dL (33.0-37.0); Mean Corpuscular Volume 84.1 fL (81.0-99.0); Platelet Count 271 10^3/uL (130-400); Red Cell Dist. Width 12.1 % (11.5-14.5)
[2025-07-10 07:56] LABS: Blood Urea Nitrogen 11 mg/dl (7-17); Calcium 9.7 mg/dl (8.4-10.2); Carbon Dioxide 29 mmol/L (22-30); Chloride 106 mmol/L (98-107); Estimated Creatinine Clearance 60 ml/min; Glucose 94 mg/dl (70-99); Magnesium 1.6 mg/dl (1.6-2.3); Potassium 4.1 mmol/L (3.5-5.1); Sodium 139 mmol/L (135-145); eGFR > 60.00
[2025-07-10] MEDS: LIDOCAINE 4% PATCH 1 PATCH TOPICAL (08:04)
[2025-07-10] MEDS: BRIVIACT 25 MG IV ×2 (08:06→21:11)
[2025-07-10] MEDS: SENOKOT-S 1 TABLET PO ×2 (08:08→21:11)
[2025-07-10] MEDS: COZAAR 25 MG PO (08:08)
[2025-07-10] MEDS: LEXAPRO 5 MG PO (08:08)
[2025-07-10] MEDS: CRESTOR 5 MG PO (08:08)
[2025-07-10] MEDS: THERAGRAN 1 TABLET PO (08:08)
[2025-07-10] MEDS: FLUSH (NSS) 1 FLUSH IV (08:09)
[2025-07-10] MEDS: ELIQUIS 5 MG PO ×2 (08:09→21:10)
[2025-07-10 11:10] VITALS: BP 114/55
--- NOTE | 2025-07-10 12:03 | CM ---
Addendum entered by Joana Patel 07/10/25 15:44:
Received call from Soumya, was informed that due to patient returning after 5:30 pm, the pharmacy wouldn't be able to fill her seizure rx by her 8 pm dose time. Asking for patient to d/c early AM after her 8 am dose.
Updated hospitalist
Updated transport for rescheduling for tomorrow AM
Addendum entered by Joana Patel 07/10/25 14:03:
Spoke w/ Soumya about daughter wanting to ensure patient's scripts can be filled before returning. Per Soumya, patient has to be back at the facility first then the pharmacy will fill her scripts but no sooner than that. Soumya stated she spoke w/
daughter about this as well as DON. Soumya stated daughter mentioned appealing the d/c but CM has no confirmation of that at this time. Soumya believes pharmacy is 24 hours.
Transport time scheduled for 5:30
Original Note:
Chart reviewed. Per hospitalist, will d/c patient today. Patient is a resident at [facility].
CM spoke w/ Soumya/admissions, agreeable to accept patient back today. Confirmed patient's diet order.
Updated [facility] referral w/ updated clinicals
Updated patient's daughter via phone. IMM verbally reviewed, copy on chart. Daughter requested copy of IMM and active med list to be emailed to her @ [email or web address]
Daughter wants to ensure patient's seizure medication can be filled today before patient returns to facility
Patient will require ambulance transport, forms on chart
[facility]
Report: [phone]---> ASK FOR A-WING

Plan: Return to [facility] today
--- NOTE | 2025-07-10 12:48 | W.DCSUMMARY ---
Addendum entered and electronically signed by Chuck Rivera DO 07/11/25 11:30:
Patient actually left for SNF on 07/11 due to issues obtaining appropriate medications at the facility's pharmacy.
Original Note:
Discharge Summary
Discharge Data
Date of Admission: 07/01/25
Date of Discharge: 07/10/25
Total time spent discharging patient (in min): 58
-
Pending Results: No
Hospital Course
Ms. 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 She was found to be saturating to the
low 70s on room air but recovered to the mid 90s on low-flow oxygen via nasal cannula.
CT angiography of her chest showed a pulmonary embolus extending from the distal right pulmonary artery into the right upper and middle lobar/segmental pulmonary arteries with no evidence of right heart strain. There is no evidence of DVT in the
large vessels of her lower extremities, however per family the patient did complain of leg pain a few days prior to developing hypoxia. Case was discussed with neurosurgery and patient was deemed safe for anticoagulation in this setting,
considering prior hemorrhagic stroke in December 2024. She was started on anticoagulation with IV heparin which was later transitioned to Eliquis. Her hypoxia improved and she was able to be titrated off of supplemental oxygen.
On 07/03/2025 patient experienced a seizure during which time she became rigid with leftward head and gaze deviation which resolved spontaneously after a few minutes. Shortly afterward, she had another similar episode which aborted with IV Valium.
She was subsequently noted to be postictal. She had no seizure history prior to these episodes. Patient was evaluated and monitored closely by neurology. Brain imaging showed no acute abnormalities. EEGs on 07/04 and 07/07 captured no epileptiform
activity, however neurology noted that her physical presentation during her seizures indicate that the seizure focus was most likely in the area affected by her prior intracranial hemorrhage. She was started on antiepileptic medication with
brivaracetam 25 mg twice daily and has had no recurrent seizure activity. Of note, prior to her seizures she had not received her home Xanax since time of admission which she had been taking for many years. Benzodiazepine withdrawal alone likely
was not the primary etiology of her seizures. Rather, brain parenchymal injury from prior hemorrhage was the primary factor here in combination with lowering of her seizure threshold due to having missed multiple doses of her home Xanax. This was
likely the multifactorial cause of her new onset seizures. She has been restarted on Xanax now at a lower dose of 0.75 mg at bedtime.
There is some concern for polypharmacy with subsequent oversedation and so some of her medications have been discontinued or reduced in dosage. Also her home losartan dose has been reduced from 100 mg to 25 mg daily due to persistent hypotension on
the higher dose. Her blood pressure has remained within normal limits on the reduced dose of losartan 25 mg. There was some suspicion for internal hemorrhoids based on patient's report of burning and pain with bowel movements. No external
hemorrhoids were visualized on exam. She was given a short course of Anusol rectal suppository. She can continue on topical hemorrhoid cream as needed. She has been continued on a scheduled stool softener with holding parameters for loose stools.
She will need close follow-up with a neurologist for ongoing monitoring of her antiepileptic medication. She will also need to follow-up with a auto locator for ongoing management of her anticoagulation with Eliquis for treatment of her pulmonary
embolism. It is not unreasonable to consider this a provoked incident with a lower extremity DVT (although no radiographic evidence of this during this hospitalization, just based off of reported history) that developed due to immobility and later
embolized to her pulmonary arteries. In the meantime patient is to remain anticoagulated with Eliquis for at least 3 to 6 months with a decision made after that point based on the risk versus benefits of ongoing anticoagulation.
At the time of hospital discharge she was medically stable. She will return to her long-term care facility. She will need to follow-up with a auto locator, a neurologist, and with her primary care physician. Her medications should continue to be
reviewed periodically in order to avoid polypharmacy and oversedation.
General: No Apparent Distress, Comfortable and Conversant
HEENT: NormoCephalic, Moist mucous membranes
Respiratory: Clear and Non Labored Respirations
Cardiac: S1/S2 and Regular Rhythm; No Rub or Gallop
GI: Soft, Non Tender, Non Distended and Normal Bowel Sounds
Musculoskeletal: No Edema, mild left arm contracture
: NO Mead
Neuro: Awake, Alert, left upper extremity weakness (arm weaker than leg), memory impairment
Psych: Calm and cooperative
Discharge Plan
-
Patient Disposition: Residential/SNF
Discharge Diagnosis/Procedures: Acute hypoxic respiratory failure due to Acute Pulmonary Embolism
New onset seizure disorder, likely related to prior stroke, possible benzo withdrawal contributed
Over sedation due to polypharmacy
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
Mild Anemia
Vascular dementia
Depression
History Hypertension
Severe Hypotension suspected iatrogenic since resolved with adjustment antihypertensive
Hyperlipidemia:
Constipation
Condition: Fair
Diet: Regular
Activity: As tolerated
Driving Restrictions: No driving
Blood Work: Repeat CBC and CMP with primary care provider in 1 week of discharge
Others Tests: Follow up with Pulmonary or Primary care provider for repeat CT Chest angiography to follow up Pulmonary Embolism in 3 months of discharge.
Follow up with Publicity Writer for Hypercoagulable work up in 2-4 weeks of discharge.
Activity Restrictions/Additional Instructions:
Follow up with your primary care provider in 1 week of discharge, your Neurologist in 1-2 weeks of discharge, Hematology in 2-4 weeks of discharge, and Pulmonology in 6 weeks of discharge.
Xanax reduced from 1 mg to 0.75 mg bedtime to reduce polypharmacy, oversedation, and risk of benzo dependence/withdrawal
Briviact prescribed for seizure disorder likely related to prior stroke. Possible benzo withdrawal contributed
Eliquis prescribed for Pulmonary Embolism.
Lexapro dose reduced from 10 mg to 5 mg to reduce polypharmacy and oversedation.
Losartan reduced from 100 mg to 25 mg daily due to severe hypotension since resolved.
Gabapentin moved to bedtime in order to minimize daytime sleepiness.
Tramadol has been discontinued as you have not required while here.
Lovenox has been discontinued in favor of Eliquis as above.
Please take medications as prescribed/recommended and follow up with primary care provider and/or other healthcare provider involved in your care for refills and/or further adjustment to your medication regimen as necessary.
Referrals:
Han Coleman, DO [Active, Hematology / Oncology] - in two to four weeks
Anne Marie Cr, DO [Active, Pulmonary Medicine] - in six weeks
UNKNOWN - PT DOES,NOT KNOW [Family Provider]
Prescriptions:
New
Briviact 25 mg tablet
25 mg PO BID Qty: 60 0RF
losartan 25 mg Tablet
25 mg PO DAILY Qty: 30 0RF
escitalopram oxalate 5 mg Tablet
5 mg PO DAILY Qty: 30 0RF
Eliquis 5 mg Tablet
5 mg PO BID Qty: 60 0RF
alprazolam 0.25 mg Tablet
0.75 mg PO HS Qty: 15 0RF
Continued
acetaminophen 325 mg Tablet
650 mg PO Q6H PRN (Reason: mild pain/temperature >100.4)
ipratropium-albuterol 0.5 mg-3 mg(2.5 mg base)/3 mL solution for nebulization
3 ml INHALATION Q6H PRN (Reason: sob or wheezing)
albuterol sulfate 2.5 mg /3 mL (0.083 %) Solution For Nebulization
2.5 mg INHALATION Q6H PRN (Reason: asthma)
triamcinolone acetonide 0.1 % cream
1 applic TOPICAL BID PRN (Reason: itching/rash)
Patient Comments:
Apply to abdomen and back
famotidine 20 mg tablet
20 mg PO HS
bisacodyl 10 mg Suppository
10 mg FL DAILY PRN (Reason: constipation, if no results from [facility])
lidocaine 5 % Adhesive Patch,Medicated
1 patch TOPICAL DAILY
Rx Instructions:
Apply to right side of neck
docusate sodium [Colace] 100 mg Capsule
100 mg PO HS
magnesium 250 mg Tablet
250 mg PO DAILY
multivitamin with minerals Tablet
1 tab PO DAILY
rosuvastatin 5 mg tablet
5 mg PO DAILY
levocetirizine 5 mg tablet
5 mg PO Q24H PRN (Reason: Pruritis)
Changed
gabapentin 100 mg capsule
100 mg PO HS Qty: 0 0RF
Discontinued
alprazolam 1 mg tablet
1 mg PO HS
tramadol 50 mg tablet
50 mg PO Q8H PRN (Reason: back pain)
losartan 100 mg tablet
100 mg PO DAILY
enoxaparin 40 mg/0.4 mL syringe
40 mg SC DAILY
escitalopram oxalate 10 mg tablet
10 mg PO DAILY
baclofen 5 mg tablet
5 mg PO HS
Discharge Orders:
Discharge Patient (As Directed); Ordered 07/10/25
Ordered By: Chuck Rivera
Discharge Date and Time
Print Language: [place] CITIZ[place]
[2025-07-10] MEDS: PREPARATION H MAX STRENGTH PAIN RELIEF CREAM 1 APPLIC RECTAL ×2 (13:16→21:10)
[2025-07-10] MEDS: TYLENOL 650 MG PO (14:42)
[2025-07-10] MEDS: ANUSOL HC 25 MG RECTAL ×2 (15:00→21:10)
[2025-07-10 15:26] VITALS: BP 125/64
--- NOTE | 2025-07-10 16:24 | PTCARENOTE ---
Pt awake and alert; oriented to self /date place 'hospital- not sure which one'. Re-oriented as needed. Pt with L-sided hemiparesis; assists at times with positioning. VSS. On room air- pulse ox 97%, no SOB noted. Abd large, soft, kristofer PO, no
dysphagia noted. Appetite fair. Incont formed BM x2. Pt c/o rectal 'burning'- good effect with Anusol suppository. Resting in bed at present; DC to [facility] cancelled for today. Will continue to monitor.
[2025-07-10 19:00] VITALS: BP 104/44
[2025-07-10] MEDS: XANAX 0.75 MG PO (21:10)
[2025-07-10] MEDS: NEURONTIN 100 MG PO (21:10)
[2025-07-10] MEDS: PEPCID 20 MG PO (21:10)
[2025-07-10 23:00] VITALS: BP 111/57
--- NOTE | 2025-07-10 23:07 | PTCARENOTE ---
pt not placed on replaced on telemetry r/t pending discharge in am. Discussed and okayed by JOELLE Garcia
[2025-07-11 07:45] VITALS: BP 124/69
[2025-07-11] MEDS: BRIVIACT 25 MG IV (08:22)
[2025-07-11] MEDS: COZAAR 25 MG PO (08:23)
[2025-07-11] MEDS: CRESTOR 5 MG PO (08:23)
[2025-07-11] MEDS: THERAGRAN 1 TABLET PO (08:24)
[2025-07-11] MEDS: SENOKOT-S 1 TABLET PO (08:24)
[2025-07-11] MEDS: ELIQUIS 5 MG PO (08:24)
[2025-07-11] MEDS: LEXAPRO 5 MG PO (08:24)
[2025-07-11] MEDS: LIDOCAINE 4% PATCH 1 PATCH TOPICAL (08:28)
[2025-07-11 09:04] VITALS: BP 119/64
--- NOTE | 2025-07-11 10:25 | PTCARENOTE ---
Report given to RN at [facility] [place]. D/C instructions updated. Patient request to hold cell phone in right hand during transport.
== END 2025-07-11 10:31 | DRG 175 ==
LOC: 4 EAST ACU 18:49
PROVIDERS: Hospitalist; Internal Medicine; ADMITTING PHYSICIAN Internal Medicine; ATTENDING PHYSICIAN Internal Medicine; CONSULT PHYSICIAN Internal Medicine; CONSULT PHYSICIAN Psychiatry & Neurology Neurology; EMERGENCY PHYSICIAN Emergency Medicine
DX: I26.99 Other pulmonary embolism without acute cor pulmonale (principal); I21.A1 Myocardial infarction type 2; J96.01 Acute respiratory failure with hypoxia; F13.239 Sedative, hypnotic or anxiolytic dependence with withdrawal, unspecified; F01.54 Vascular dementia, unspecified severity, with anxiety; F01.53 Vascular dementia, unspecified severity, with mood disturbance; I69.354 Hemiplegia and hemiparesis following cerebral infarction affecting left non-dominant side; I69.30 Unspecified sequelae of cerebral infarction; G40.909 Epilepsy, unspecified, not intractable, without status epilepticus; I95.9 Hypotension, unspecified; I10 Essential (primary) hypertension; D64.9 Anemia, unspecified; F32.A Depression, unspecified; K59.00 Constipation, unspecified; Z66 Do not resuscitate; K64.9 Unspecified hemorrhoids; E78.00 Pure hypercholesterolemia, unspecified; G62.9 Polyneuropathy, unspecified; J43.9 Emphysema, unspecified; J45.909 Unspecified asthma, uncomplicated; Z79.01 Long term (current) use of anticoagulants; Z79.899 Other long term (current) drug therapy; Z11.52 Encounter for screening for COVID-19
CPT/HCPCS: 70450; 71045; 71046; 71275; 80048; 80053; 82962; 83735; 84100; 84484; 85027; 85379; 85730; 87811; 92526; 92610; 93005; 93306; 93970; 95813; 95816; 96365; 99291; Q9967